=== PATIENT | female | born 1995 | race Caucasian/White ===

== ENCOUNTER → 2017-10-10 09:30 | Outpatient (CLI) | payer OTHER, SELFPAY ==
[2017-10-10 17:15] LABS: Chlamydia Trachomatis by PCR Negative (Negative); Neisserai gonorrhoeae by PCR Negative (Negative); Probe Check PASS; Sample Adequacy Control PASS; Specimen Processing Control PASS
[2017-10-14 13:44] LABS: HPV Reflexed? NOT INDICATED
== END ==
PROVIDERS: Visit Provider Obstetrics & Gynecology
DX: Z32.01 Encounter for pregnancy test, result positive (principal); Z12.4 Encounter for screening for malignant neoplasm of cervix; Z11.3 Encounter for screening for infections with a predominantly sexual mode of transmission
CPT/HCPCS: 87491; 87591; 88175; G0145

== ENCOUNTER → 2017-10-23 14:54 | Outpatient (CLI) | payer OTHER, SELFPAY ==
[2017-10-23 15:41] LABS: Absolute Lymphocyte Count 1.95 X10^3/ul (0.83-4.51); Absolute Neutrophil Count 6.2 X10^3/uL (2.0-7.7); Basophil# 0.02 X10^3/uL; Basophil% 0.2 % (0-1); Color, Urine Yellow (Yellow); Eosinophils% 1.1 % (0-5); Glucose, Dipstick Normal (Normal); Hemoglobin 13.3 g/dl (12.0-15.0); Ketone-Dipstick Negative (Negative); Leukocyte Esterase-Dipstick Negative /ul (Negative); Lymphocyte # 1.95 X10^3/ul (4.0); Lymphocyte % 22.4 % (19-41); Mean Corp Hgb Conc 33.3 g/gl (32-36); Mean Corpuscular Hgb 27.1 pg (27.0-32.0); Mean Corpuscular Volume 81.6 fL (81-99); Mean Platelet Vol. 9.4 fl (6.2-12.0); Monocyte# 0.45 X10^3/uL; Monocyte% 5.2 % (0-10); Neutrophil # 6.17 X10^3/uL (2.7-7.7); Neutrophil % 70.9 % (47-70); Nitrite-Dipstick Negative (Negative); Occult Blood-Urine Negative /ul (Negative); Platelet Count 243 K/mm3 (150-450); Protein-Dipstick Negative (Negative); RBC Distribution Width CV 13.8 % (11.6-14.6); RBC Distribution Width SD 40.8 fl (35.1-43.9); Specific Gravity, Urine 1.015 (1.002-1.030); Urine Bilirubin Dipstick Negative (Negative); Urine Clarity Clear (Clear); Urine Urobilinogen Normal (Normal); Urine pH 6.5 (5.0 - 8.0); White Blood Count 8.7 K/mm3 (4.4-11.0)
[2017-10-23 15:50] LABS: POSITIVE COUNT NO; POSITIVE DIFFERENTIAL NO; POSITIVE MORPHOLOGY NO
[2017-10-23 16:01] LABS: COTININE Drug Screen Negative (<200 ng/mL)
[2017-10-23 16:07] LABS: Amphetamine Urine VISTA NEGATIVE (<1000 ng/mL); Barbiturate Urine VISTA NEGATIVE (< 200 ng/mL); Benzodiazepine Urine VISTA NEGATIVE (< 200 ng/mL); Cocaine Urine VISTA NEGATIVE (< 300 ng/mL); Ecstacy Urine VISTA NEGATIVE (< 500 ng/mL); Methadone Urine VISTA NEGATIVE (< 300 ng/mL); PCP Urine VISTA NEGATIVE (< 25 ng/mL); THC Urine VISTA NEGATIVE (< 50 ng/mL); Vista UDS pH Range 5
[2017-10-23 16:39] LABS: Thyroid Stim Hormone (TSH) 1.37 uIU/mL (0.358-3.74)
[2017-10-23 16:54] LABS: HIV - WCH Non-Reactive (Nonreactive); Rubella IgG > 500.0 IU/mL
[2017-10-25 11:37] LABS: HEPATITIS B SURFACE AG Negative (Negative); Hep C Antibodies 0.1 s/co ratio (0.0-0.9)
[2017-10-27 01:01] LABS: Prenatal RPR NONREACTIVE (NONREACTIVE)
== END ==
PROVIDERS: Visit Provider Obstetrics & Gynecology
DX: Z34.81 Encounter for supervision of other normal pregnancy, first trimester (principal)
CPT/HCPCS: 36415; 80307; 81002; 84443; 85025; 86703; 86762; 86803; 87340

== ENCOUNTER → 2017-12-21 16:12 | Outpatient (CLI) | payer OTHER, SELFPAY ==
--- NOTE | 2017-12-21 | IMM_PTH ---
PATIENT: AMISH GILLESPIE LOC: [facility] U#:[id number] AGE/SX: 29/F ROOM: RE12/21/[address]: Dr. Thierry Rios MD : 1995 BED: DIS: SPEC #: [id number] RECD: 12/25/17 11:52 STATUS: TYSHAWN REQ #: [id number] BARBIE: 12/21/17 00:[address]: Thierry Rios DEPT: IMMUNOHISTOCHEMISTRY RECD BY: Malu Eaton Tissues: Uterine cervix, NOS Procedures: p16 (initial) KI-67 (add) Comments: @ Specimen number changed from [id number] to [id number] @ on 12/25/17 at 1159 by RGOOD. PHYSICIAN & INSTITUTION [place] [id number] SPECIMEN INFORMATION: Tissue Source: Cervix at 10 o'clock Clinical Info: JERMAINE Specimen Number: [id number] CPT code: 29125, 89578 METHODOLOGY: Deparaffinized sections of prefer/formalin-fixed tissue or PAP/DQ stained slides are incubated with monoclonal/polyclonal antibodies/oligonucleotide probes. Localization is made via biotin free immunoperoxidase method. Appropriate controls are performed and reacted as expected. Results on target cell population are indicated in the following table: RESULTS: ANTIBODY / CLONE RESULT P16 (E6H4) negative Ki-67 (30-9) negative These tests were developed and their performance characteristics determined by [facility]. They may not have been cleared or approved by the U.S. Food and Drug Administration. The FDA has determined that such clearance or approval is not necessary. INTERPRETATION: Cervix at 10 o'clock: Focal changes suspicious for HPV cytopathic effects. SJ:liz 12/26/17
--- NOTE | 2017-12-21 15:45 | CER_PTH ---
PATIENT: AMISH GILLESPIE LOC: [facility] U#:[id number] AGE/SX: 29/F ROOM: RE12/21/[address]: Dr. Thierry Rios MD : 1995 BED: DIS: SPEC #: [id number] RECD: 12/21/17 17:04 STATUS: TYSHAWN JAYE #: [id number] BARBIE: 12/21/17 15:[address]: Thierry Rios DEPT: SURGICAL PATHOLOGY RECD BY: Valdemar Epstein Tissues: Uterine cervix, NOS Procedures: Surgery Specimen Level IV HEADER OPERATION: Colposcopy PRE-OP DIAGNOSIS: LGSIL TISSUE SUBMITTED: 10 o'clock MICROSCOPIC DIAGNOSIS Cervix, 10 o'clock, biopsy: Focal changes suspicious for HPV cytopathic effects. Acute and chronic inflammation, squamous metaplasia and microglandular hyperplasia. See comment. GARTH:liz 12/25/17 COMMENT Results of Immunohistochemistry ([id number]) for surrogate HPV marker (p16) will be reported separately. MICROSCOPIC DESCRIPTION Slides are reviewed. GROSS DESCRIPTION Received in fixative is one container labeled with the patient's name and designated 10 o'clock. The specimen consists of one irregular fragment of light madera soft tissue that measures 0.4 x 0.4 x 0.1 cm. The specimen is totally submitted in one cassette. / SJ:liz 12/22/17 TC:5 CPT: 54297
== END ==
PROVIDERS: Visit Provider Obstetrics & Gynecology
DX: N87.9 Dysplasia of cervix uteri, unspecified (principal)
CPT/HCPCS: 88305; 88341; 88342

== ENCOUNTER 2018-01-05 02:04 | Emergency (ER) | payer OTHER, SELFPAY ==
[2018-01-05 02:05] VITALS: BP 127/77; PULSE 92; RESP 16; TEMP 36.7; O2SAT 97; BMI 28.1
--- NOTE | 2018-01-05 02:50 | ED.VIS.GEN ---
History of Present Illness Chief Complaint: Flank Pain Informant: Patient Onset: Yesterday, Days - 2 Context: Gradual Onset Timing: Continuous Quality: ache Location: left low back Current Severity: Moderate Maximum Severity: Moderate Worsened by: nothing Relieved by: nothing Associated Symptoms: nausea Narrative: Similar symptoms to prior kidney infections. She states when she gets those, she typically gets renal colic, which she is feeling now, but no urinary symptoms. She does not have any abnormal urinary symptoms now. She is 18 weeks, she is a . Her has been uneventful so far and she is feeling occasional flutters of the baby moving still. She had some cramping in her pelvis earlier this morning over 20 hours ago, but nothing since. No vaginal bleeding, gushes of water, or discharge otherwise. No diarrhea. No vomiting but she is nauseated. No known fevers although she had a subjective one 24 hours ago. She has not had pyelonephritis during this prior to now. - Past Medical History (1) Pyelonephritis Status: Resolved Past Medical History - Allergies and Home Meds Allergies/Adverse Reactions: Allergies No Known Allergies Allergy (Verified 01/05/18 02:08) Smoking Status: Never smoker Review of Systems General: Reports: Fever, Subjective. Denies: Chills, Sweats Eyes: Denies: Visual changes - bilaterally, Diplopia ENT: Denies: Rhinorrhea, Sore throat Cardiovascular: Denies: Chest pain, Palpitations Respiratory: Denies: Dyspnea, Cough, Dyspnea on exertion Gastrointestinal: Reports: Abdominal pain, Nausea. Denies: Vomiting, Diarrhea, Melena, Hematochezia Genitourinary: Denies: Dysuria, Hematuria, Frequency Musculoskeletal: Reports: Back pain, Extremity Pain Skin: Denies: Rash, Wounds Neurological: Denies: Headache, Weakness, Numbness Physical Exam Vital Signs/Narrative: Vital Signs Temp Pulse Resp BP Pulse Ox 01/05/18 02:05 98.1 F 92 16 127/77 H 97 Inital Vital Signs reviewed: Yes General: Well nourished, Well developed, - - nad Head: Normocephalic, Atraumatic Eyes: Perrl, EOMI ENT: Moist mucous membranes, No rhinorrhea Neck: Supple, Nontender Cardiovascular: Regular rate, Regular rhythm, No murmurs Respiratory: No distress, CTA bilaterally, Chest nontender Abdomen: Soft, Nontender, Nondistended, Normal bowel sounds Back: Normal Inspection, CVA tenderness - left only. otherwise, NT. no rashes. Extremities: Nontender, No edema Skin: Normal color, No rash Neurological: Alert, Oriented x3, Cranial nerves II-XII grossly intact, Normal Strength, Normal Sensation Psychological: Normal affect Diagnostic/Tx/Re-eval - Medical Decision Making Urinalysis is normal, showing no signs of infection. Ultrasound is not available at this time, I discussed with the patient that an alternative diagnosis certainly could be a kidney stone, versus muscular discomfort in her back. heart tones are good at 158, labs are otherwise unremarkable showing a nonspecific leukocytosis that is mild and, in second trimester . She was given Tylenol, IV fluids and Zofran, she does feel better and she is comfortable going home and following up with her patient support specialist. We will also give her some urine strainers to strain urine for the next 48 hours in case she does have a small stone that hopefully she would pass. ED Disposition - Plan for ED Patient: Disposition: Home or Assisted Living Chief Complaint: Flank Pain Diagnosis: Left flank pain, Second trimester Instructions: ED Flank Pain Uncertain Cause Prescriptions: Ondansetron [Zofran Odt] 8 mg PO Q8H PRN PRN #12 tab PRN Reason: Nausea Referrals: Care Physician,No Primary [Primary Care Provider] - Thierry Rios MD [STAFF PHYSICIAN] - 3-5 Days if not improving
[2018-01-05 02:57] LABS: Mucous, Urine 0 SEEN /hpf (<or=2+); Red Blood Cells-Urine 0 SEEN /hpf (0-5); White Blood Cells 0 SEEN /hpf (0-5)
[2018-01-05] MEDS: Ondansetron 4 MG/2 ML Vial IV (02:58)
[2018-01-05 02:59] LABS: Color, Urine Yellow (Yellow); Glucose, Dipstick Normal (Normal); Ketone-Dipstick Negative (Negative); Leukocyte Esterase-Dipstick Negative /ul (Negative); Nitrite-Dipstick Negative (Negative); Occult Blood-Urine Negative /ul (Negative); Protein-Dipstick Negative (Negative); Specific Gravity, Urine 1.015 (1.002-1.030); Urine Bilirubin Dipstick Negative (Negative); Urine Clarity Clear (Clear); Urine Urobilinogen Normal (Normal)
[2018-01-05] MEDS: Acetaminophen 500 MG Tablet 1000 MG PO (02:59)
[2018-01-05 03:01] LABS: Absolute Lymphocyte Count 1.94 X10^3/ul (0.83-4.51); Absolute Neutrophil Count 8.9 X10^3/uL (2.0-7.7); Basophil# 0.03 X10^3/uL; Basophil% 0.3 % (0-1); Eosinophil# 0.14 X10^3/uL; Eosinophils% 1.2 % (0-5); Hematocrit 34.8 % (37-47); Hemoglobin 12.2 g/dl (12.0-15.0); Lymphocyte # 1.94 X10^3/ul (4.0); Lymphocyte % 16.6 % (19-41); Mean Corp Hgb Conc 35.1 g/gl (32-36); Mean Corpuscular Hgb 29.6 pg (27.0-32.0); Mean Corpuscular Volume 84.5 fL (81-99); Mean Platelet Vol. 9.9 fl (6.2-12.0); Monocyte# 0.67 X10^3/uL; Monocyte% 5.7 % (0-10); Neutrophil # 8.85 X10^3/uL (2.7-7.7); Neutrophil % 75.8 % (47-70); Platelet Count 219 K/mm3 (150-450); RBC Distribution Width CV 13.3 % (11.6-14.6); RBC Distribution Width SD 40.9 fl (35.1-43.9); Red Blood Count 4.12 M/mm3 (4.2-5.4); White Blood Count 11.7 K/mm3 (4.4-11.0)
[2018-01-05 03:05] LABS: POSITIVE COUNT NO; POSITIVE DIFFERENTIAL NO; POSITIVE MORPHOLOGY NO
[2018-01-05 03:08] LABS: Bacteria RARE /hpf (None Seen); Squamous Epithelial Cells - UA 0-5 SEEN /hpf (5-10)
[2018-01-05 03:15] LABS: Anion Gap 10 (5-15); BUN 9 mg/dL (7-18); BUN/Creat Ratio 15.1 RATIO (10-20); Calcium,Total 8.7 mg/dL (8.5-10.1); Chloride 109 mmol/L (98-107); EST Glomerular Filtration Rate 133 mL/min (>60); Est Glom Filt Rate - Afr Amer 161 mL/min (>60); Estimated Creatinine Clearance 143.02 ml/min; Glucose 94 mg/dL (74-106); Potassium 3.6 mmol/L (3.5-5.1); Sodium Level 143 mmol/L (136-145)
[2018-01-05 04:20] VITALS: BP 105/71; PULSE 71; RESP 18; O2SAT 99
== END 2018-01-05 04:20 | disposition home or self-care (01) ==
PROVIDERS: Emergency Provider Emergency Medicine
DX: O26.892 Other specified pregnancy related conditions, second trimester (principal); R11.0 Nausea; R10.9 Unspecified abdominal pain; Z3A.18 18 weeks gestation of pregnancy; Z87.448 Personal history of other diseases of urinary system
CPT/HCPCS: 80048; 81001; 85025; 96361; 96374; 99283; J7030; J7040; A4216; J2405

== ENCOUNTER 2018-01-28 08:13 | Emergency (ER) | payer OTHER, SELFPAY ==
[2018-01-28 08:14] VITALS: BP 121/63; PULSE 80; RESP 17; TEMP 36.8; O2SAT 97; BMI 27.8
--- NOTE | 2018-01-28 08:27 | ED.VISSUMM ---
- ER Visit Summary Date of Service: 01/28/18 Chief Complaint: Right flank pain History of Present Illness: The patient is a 22 F no significant past medical history. She is currently almost 22 weeks . Ab0. Patient states suddenly on Monday she had right flank pain. She denies any dysuria or hematuria. She denies any fever. She has had nausea limited to no vomiting. No diarrhea. She denies any abdominal pain. No vaginal bleeding. She has no history of kidney stones. Denies any trauma. Physical Examination: Young female no acute distress. Vital signs are stable and afebrile. Blood pressure 121/63. H EENT exam unremarkable. Neck nontender. Lungs clear to auscultation bilaterally. Heart regular rhythm no murmur. Abdomen soft. Gravid uterus. Nontender. Both the right upper and right lower quadrants are unremarkable. She is moving all 4 extremities. They are neurovascularly intact. Normal range of motion. Normal motor strength. No edema. Back she has reproducible paraspinal tenderness on the right flank. There is no ecchymosis or bruising. No redness or warmth. Neurologically she is awake and alert without focal motor deficits. Test Results: Urinalysis shows greater than 100 white blood cells 3+ bacteria and blood consistent with UTI or pyelonephritis. Negative nitrates. BMP normal. Normal renal function. heart tones 152. A urine culture was ordered. Emergency Department Course and Treatment: Patient with right flank pain without history of kidney stones. She was recently evaluated normal chemistry panel and urinalysis. On repeat exam patient is doing well at 09 25. I discussed all test results with her and her mother. She will be started on Keflex 500 4 times daily for 10 days. Follow-up with her ENROBING MACHINE CORDER. Get the urine culture results. Return if feeling worse. Tylenol for pain. Treatment Plan: Keflex 500 4 times daily for 10 days. Disposition: Discharge Impression: Acute right flank pain secondary to pyelonephritis Currently 21 weeks and 5 days This note was generated with Voltation software. It may contain incorrect words, spelling, and punctuation that were not noted in review of the chart prior to signing ED Disposition - Plan for ED Patient: Chief Complaint: Flank Pain Referrals: Care Physician,No Primary [Primary Care Provider] -
--- NOTE | 2018-01-28 08:31 | ED.DCSUM_ITS ---
- ER Visit Summary Date of Service: 01/28/18 Chief Complaint: Right flank pain History of Present Illness: The patient is a 22 F no significant past medical history. She is currently almost 22 weeks . Ab0. Patient states suddenly on Monday she had right flank pain. She denies any dysuria or hematuria. She denies any fever. She has had nausea limited to no vomiting. No diarrhea. She denies any abdominal pain. No vaginal bleeding. She has no history of kidney stones. Denies any trauma. Physical Examination: Young female no acute distress. Vital signs are stable and afebrile. Blood pressure 121/63. H EENT exam unremarkable. Neck nontender. Lungs clear to auscultation bilaterally. Heart regular rhythm no murmur. Abdomen soft. Gravid uterus. Nontender. Both the right upper and right lower quadrants are unremarkable. She is moving all 4 extremities. They are neurovascularly intact. Normal range of motion. Normal motor strength. No edema. Back she has reproducible paraspinal tenderness on the right flank. There is no ecchymosis or bruising. No redness or warmth. Neurologically she is awake and alert without focal motor deficits. Test Results: Urinalysis shows greater than 100 white blood cells 3+ bacteria an d blood consistent with UTI or pyelonephritis. Negative nitrates. BMP normal. Normal renal function. heart tones 152. A urine culture was ordered. Emergency Department Course and Treatment: Patient with right flank pain without history of kidney stones. She was recently evaluated normal chemistry panel and urinalysis. On repeat exam patient is doing well at 09 25. I discussed all test results with her and her mother. She will be started on Keflex 500 4 times daily for 10 days. Follow-up with her CORE DRILLER HELPER. Get the urine culture results. Return if feeling worse. Tylenol for pain. Treatment Plan: Keflex 500 4 times daily for 10 days. Disposition: Discharge Impression: Acute right flank pain secondary to pyelonephritis Currently 21 weeks and 5 days This note was generated with Noovoation software. It may contain incorrect words, spelling, and punctuation that were not noted in review of the chart prior to signing ED Disposition - Plan for ED Patient: Chief Complaint: Flank Pain Referrals: Care Physician,No Primary [Primary Care Provider] -
[2018-01-28] MEDS: 0.9% Normal Saline 1,000 ML 1000 ML IV (08:39)
[2018-01-28] MEDS: Morphine 4 MG/ML Syringe 6 MG IV (08:39)
[2018-01-28] MEDS: Ondansetron 4 MG/2 ML Vial IV (08:40)
[2018-01-28 08:52] VITALS: BP 115/72; PULSE 88; RESP 16; O2SAT 98
[2018-01-28 08:52] LABS: Mucous, Urine 0 SEEN /hpf (<or=2+); Red Blood Cells-Urine 0 SEEN /hpf (0-5)
[2018-01-28 08:54] LABS: Color, Urine Yellow (Yellow); Glucose, Dipstick Normal (Normal); Ketone-Dipstick 5 mg/dl (Negative); Leukocyte Esterase-Dipstick 500 /ul (Negative); Nitrite-Dipstick Negative (Negative); Occult Blood-Urine 250 /ul (Negative); Protein-Dipstick 100 mg/dl (Negative); Specific Gravity, Urine 1.005 (1.002-1.030); Urine Bilirubin Dipstick Negative (Negative); Urine Clarity Cloudy (Clear); Urine Urobilinogen Normal (Normal)
[2018-01-28 08:59] LABS: Bacteria 3+ /hpf (None Seen); Squamous Epithelial Cells - UA 0-5 SEEN /hpf (5-10); White Blood Cells >100 SEEN /hpf (0-5)
[2018-01-28 09:07] LABS: Anion Gap 9 (5-15); BUN 7 mg/dL (7-18); BUN/Creat Ratio 12.5 RATIO (10-20); Calcium,Total 8.4 mg/dL (8.5-10.1); Chloride 106 mmol/L (98-107); Creatinine, Serum 0.56 mg/dL (0.55-1.02); EST Glomerular Filtration Rate 143 mL/min (>60); Est Glom Filt Rate - Afr Amer 172 mL/min (>60); Estimated Creatinine Clearance 153.24 ml/min; Glucose 92 mg/dL (74-106); Potassium 3.6 mmol/L (3.5-5.1); Sodium Level 138 mmol/L (136-145)
--- NOTE | 2018-01-28 09:28 | ED.DEP ---
ED Disposition - Plan for ED Patient: Disposition: Home or Assisted Living Chief Complaint: Flank Pain Instructions: ED Kidney Infec Female Prescriptions: Ondansetron [Zofran Odt] 4 mg PO Q6H PRN PRN #14 tab.rapdis PRN Reason: Nausea Cephalexin [Keflex] 500 mg PO Q6 #40 cap Referrals: Thierry Rios MD [STAFF PHYSICIAN] - As soon as possible Additional Instructions: Plenty of fluids and rest. Tylenol for pain. Keflex 1 pill 4 times a day till gone. Call and follow-up with Dr. Rios. A urine culture was sent.
[2018-01-28] MEDS: Cephalexin 250 MG Capsule 500 MG PO (09:48)
== END 2018-01-28 09:52 | disposition home or self-care (01) ==
PROVIDERS: Emergency Provider Emergency Medicine
DX: O23.02 Infections of kidney in pregnancy, second trimester (principal); Z3A.21 21 weeks gestation of pregnancy
CPT/HCPCS: 80048; 81001; 87086; 87088; 87186; 96361; 96374; 96375; 99284; J7030; J2405

== ENCOUNTER → 2018-03-14 08:36 | Outpatient (CLI) | payer BC, SELFPAY ==
[2018-03-14 10:56] LABS: Hematocrit 32.2 % (37-47); Hemoglobin 10.6 g/dl (12.0-15.0); Mean Corp Hgb Conc 32.9 g/gl (32-36); Mean Corpuscular Volume 85.2 fL (81-99); Mean Platelet Vol. 9.6 fl (6.2-12.0); Platelet Count 242 K/mm3 (150-450); RBC Distribution Width CV 12.8 % (11.6-14.6); RBC Distribution Width SD 38.7 fl (35.1-43.9); Red Blood Count 3.78 M/mm3 (4.2-5.4); White Blood Count 8.4 K/mm3 (4.4-11.0)
[2018-03-14 10:57] LABS: Scan Indicated on CBC? Y/N NO
[2018-03-14 11:07] LABS: Glucose Challenge Gest 1H 50g 131 mg/dL (70-140)
== END ==
PROVIDERS: Visit Provider Obstetrics & Gynecology
DX: Z34.83 Encounter for supervision of other normal pregnancy, third trimester (principal)
CPT/HCPCS: 36415; 82950; 85027; 86850

== ENCOUNTER → 2018-05-11 11:04 | Outpatient (CLI) | payer BC, SELFPAY | PROVIDERS: Visit Provider Obstetrics & Gynecology | DX: Z36.85 Encounter for antenatal screening for Streptococcus B (principal) | CPT/HCPCS: 87081 ==

== ENCOUNTER → 2018-05-18 10:06 | Outpatient (CLI) | payer BC, SELFPAY ==
[2018-05-18 10:32] LABS: ROM Internal Control Test YES-OK TO RESULT pt. (Internal QC); ROM Patient Test Negative (Negative)
[2018-05-18 10:33] LABS: Record Kit Lot#, ROM+ J7836
== END ==
PROVIDERS: Visit Provider Obstetrics & Gynecology
DX: Z34.83 Encounter for supervision of other normal pregnancy, third trimester (principal)
CPT/HCPCS: 84112

== ENCOUNTER 2018-06-08 00:45 | Outpatient (CLI) | payer BC, SELFPAY ==
[2018-06-08 01:31] VITALS: BMI 32.9
[2018-06-08 01:49] LABS: ROM Internal Control Test YES-OK TO RESULT pt. (Internal QC); ROM Patient Test Negative (Negative); Record Kit Lot#, ROM+ J7836
[2018-06-08] MEDS: Acetaminophen 500 MG Tablet PO (04:22)
--- NOTE | 2018-06-11 13:01 | OB.TRI.NOTE ---
History of Present Illness Date of Service: 06/08/18 Was patient seen by the physician?: No Reason For Visit: R/O LABOR Date of Service: 06/08/18 Final ALIZA: 06/05/18 Gestational age: 40 Weeks and 3 Days History of Present Illness: 22 yo female at 40 3/7 wk with UCs for labor check. Monitored for more than 4 hrs without additional cervical change Allergies No Known Allergies Allergy (Verified 06/08/18 01:31) Laboratory Studies: Laboratory Tests 06/08/18 Range/Units 01:00 Vag Amniotic Fld Detect Negative (Negative) NST - FHR Rate Baby A Baseline: 130-140s avf variability. accels t o 160s. no decels Variability:: Moderate Accelerations:: 15 x 15 Decelerations:: None NST Reactive:: Yes, Appropriate for gestational age FHR Category:: Category I Uterine Activity:: UCs 1 1 1/2 - 3 1/2 mins. Impression/Plan 40 3/7 wk False labor NST reactive UCs noted, but no further cervix change Keep next ofc appt. Return to hospital if inc s/sx of labor.
== END 2018-06-08 05:40 | disposition home or self-care (01) ==
LOC: WPOUT 01:17 → WP 01:17
PROVIDERS: Referring Provider Obstetrics & Gynecology; Visit Provider Obstetrics & Gynecology
DX: O47.1 False labor at or after 37 completed weeks of gestation (principal); Z3A.40 40 weeks gestation of pregnancy
CPT/HCPCS: 59050; 84112; 99218; G0378

== ENCOUNTER 2018-06-14 01:05 | Inpatient (IN) | payer BC, SELFPAY ==
[2018-06-14] MEDS: Lactated Ringers 1,000 ML 50 ML IV ×3 (01:45→07:32)
[2018-06-14 02:16] VITALS: BMI 33.3
[2018-06-14 02:17] LABS: Absolute Lymphocyte Count 2.98 X10^3/ul (0.83-4.51); Absolute Neutrophil Count 9.8 X10^3/uL (2.0-7.7); Basophil# 0.02 X10^3/uL; Basophil% 0.1 % (0-1); Eosinophil# 0.11 X10^3/uL; Eosinophils% 0.8 % (0-5); Hematocrit 36.5 % (37-47); Hemoglobin 12.6 g/dl (12.0-15.0); Lymphocyte # 2.98 X10^3/ul (4.0); Lymphocyte % 21.5 % (19-41); Mean Corp Hgb Conc 34.5 g/gl (32-36); Mean Corpuscular Hgb 28.5 pg (27.0-32.0); Mean Corpuscular Volume 82.6 fL (81-99); Mean Platelet Vol. 11.3 fl (6.2-12.0); Monocyte% 6.5 % (0-10); Neutrophil # 9.78 X10^3/uL (2.7-7.7); Neutrophil % 70.7 % (47-70); Platelet Count 208 K/mm3 (150-450); RBC Distribution Width CV 14.3 % (11.6-14.6); RBC Distribution Width SD 41.4 fl (35.1-43.9); Red Blood Count 4.42 M/mm3 (4.2-5.4); White Blood Count 13.8 K/mm3 (4.4-11.0)
[2018-06-14] MEDS: Ondansetron 4 MG/2 ML Vial IV (02:36)
[2018-06-14 02:42] LABS: POSITIVE COUNT NO; POSITIVE DIFFERENTIAL NO; POSITIVE MORPHOLOGY NO
[2018-06-14] MEDS: fentaNYL-bupivacaine (epidural) 100 ML BAG EPIDURAL ×2 (03:25→07:33)
[2018-06-14] MEDS: Acetaminophen 325 MG Tablet PO (08:35)
--- NOTE | 2018-06-14 11:45 | PLAC_PTH ---
PATIENT: AMISH GILLESPIE LOC: [facility] U#:[id number] AGE/SX: 23/ ROOM: WP003 RE06/14/[address]: Dr. Thierry Rios MD : 1995 BED: 1 DIS: 06/16/2018 SPEC #: [id number] RECD: 06/14/18 12:51 STATUS: TYSHAWN REQ #: [id number] BARBIE: 06/14/18 11:[address]: Thierry Rios DEPT: SURGICAL PATHOLOGY RECD BY: Faisal Forrester ENTERED: 06/14/18 13:20 SP TYPE: PLACENTA OTHR DR: Dr. Janis Fernandez MD No Primary Care Phys Tissues: Placenta, NOS Procedures: Surgery Specimen Level V HEADER OPERATION: Vaginal delivery PRE-OP DIAGNOSIS: Rupture of membranes, meconium stained placenta TISSUE SUBMITTED: Placenta MICROSCOPIC DIAGNOSIS Placenta: Placental disc - third trimester placenta (454 gm). Membranes - acute chorioamnionitis. - Pigment-laden macrophages consistent with meconium staining. Umbilical cord - three blood vessels and acute funisitis. SJ:liz 06/18/18 MICROSCOPIC DESCRIPTION Slides are reviewed. GROSS DESCRIPTION SPECIMEN: PLACENTA / CLINICAL INFORMATION: A. Weight: 3.22 kg B. Gestational Age: 41 weeks C. Sex: Male PLACENTAL WEIGHT (POST FIXATION): 454 gm PLACENTAL DIMENSIONS: 14.5 x 13.5 x 2.5 cm PLACENTAL SHAPE: Usual ovoid PLACENTAL WEIGHT FOR GESTATIONAL AGE: Within 10-99th percentile MEMBRANES - Present A. Insertion: Marginal B. Site of rupture from edge: 6 cm from edge of placental disc C. Color of membrane: [place]cantara-green D. Abnormalities: None UMBILICAL CORD - Present A. Color: [place]cantara-gracia B. Insertion: Paracentral C. Length: 34.5 cm D. Diameter: 1.2 cm E. Number of vessels: Three F. Abnormalities: None PLACENTAL DISC - Present A. Color of surface: Bluish-gracia B. surface abnormalities: None C. Maternal cotyledons: Intact with minimal tears D. Attached retro placental clot: No clot E. Cut surface: Dark red and spongy F. Lesions: None G. Separate clot: Absent SECTIONS SUBMITTED: 1. Umbilical cord, end and membranes 2. Cord, maternal end and membranes 3. Central placenta, surface 4. Peripheral placenta 5. Central placenta, maternal surfaces CE:liz 06/15/18 TC:2 CPT: 13969
[2018-06-14] MEDS: Oxytocin 30 units/NS 500 ml 30 UNITS/500 ML IV.SOLN 334 UNITS IV (11:46)
--- NOTE | 2018-06-14 12:09 | DCINST_ITS ---
Discharge Diet: No Restrictions Discharge Activity: Return to Normal Activity, May Drive, May Shower Return to work on:: 08/14/18 May shower in (days): 0 May resume sexual activity in: 4-6 weeks Call your doctor if your incision/area has: Sudden Increased Bleeding, Increased Pain/ Swelling, Foul Smelling Discharge Call your doctor if you observe: Fever of 101 or Higher, Inability to urinate, Inability to have a bowel movement, Using more than one pad per hour, Shortness of breath, Chest pain, Calf discomfort, Uncontrolled pain Cleanse incision/area with: Soap & Water Additional Instructions: If you experience any of the following, contact your healthcare provider. * Bleeding that soaks a pad every hour for 2 hours * Fever 100.4 or higher * Unrelieved incision or abdominal pain * Swelling, redness, discharge or bleeding from your incision or episiotomy site * Your incision begins to separate * Problems urinating (including inability to urinate or burning while urinating). * Visual changes * Severe headache * Flu-like symptoms * Pain or redness in one of both of your breasts * Pain, warmth, tenderness or swelling in your legs, especially the calf area * Frequent nausea and vomiting * Symptoms of depression or anxiety If you experience any of the following, call 911 or go to the nearest Emergency Room. * Chest pain * Problems breathing * Seizure activity * Partial or complete paralysis of a body part, slurred speech, weakness or drooping of the face, or a sudden inability to walk or hold your balance Allergies/Adverse Reactions: Allergies No Known Allergies Allergy (Verified 06/14/18 02:15) Medications to take at Discharge Vits96/Iron Fum/Folic [ Tablet] 1 tab PO DAILY 01/05/18 Ferrous Gluconate 324 mg PO BID 06/08/18 Ibuprofen [Motrin] 600 mg PO Q6H PRN PRN #30 tab 06/14/18 The following prescriptions were given: Ibuprofen [Motrin] 600 mg PO Q6H PRN PRN #30 tab PRN Reason: pain or cramping Please Follow Up With: Thierry Rios MD When: 6 weeks Primary Care Physician: Care Physician,No Primary [Primary Care Provider] - Test Results: Test results from this visit will be discussed in further detail at your follow- up appointment, if applicable. Proposed Discharge Date: 06/16/18
[2018-06-14] MEDS: Oxytocin 30 units/NS 500 ml 30 UNITS/500 ML IV.SOLN 167 UNITS IV (12:17)
--- NOTE | 2018-06-14 12:51 | PCM.OB.VAG ---
Vaginal Delivery Maternal Presentation: Active Labor, Spontaneous Rupture of Membranes Presented at 41 weeks 2 days EGA with spontaneous rupture of membranes at home. Amniotic Membrane Rupture Type: Spontaneous at home Rupture of Membrane time: 0015 Amniotic Fluid Description: Clear Final ALIZA: 06/05/18 Final ALIZA Source: US <20 weeks Gestational age: 41 Weeks and 2 Days Date of Procedure: 06/14/18 Pre-Operative Diagnosis: Labor Post-Operative Diagnosis: same Surgery/ Procedure Performed: Spontaneous Vaginal Delivery Anesthesiologist: Bam Elmore Type of Anesthesia: Epidural Description of Procedure: Ana was admitted with membranes grossly ruptured. The fluid was noted to be meconium stained. She progressed over 6 hours to fully dilated. She then pushed for about 3 hours to deliver a live male without complication. There was noted to be a loose umbilical around the neck x 1 easily reduced at delivery. The mouth was suctioned with a bulb suction at delivery. The cord was clamped and cut. The baby was then handed to the waiting nurse for evaluation by Dr. Cameron. There was an active cry shortly thereafter. The placenta was delivered spontaneously intact with a centrally located 3VC. The membranes were meconium stained. The uterus contracted well. Inspection revealed an intact cervix and upper vagina. A small posterior vaginal first degree tear was repaired with 2-0 Vicryl. Small bilateral periurethral tears were repaired with 3-0 Rapide suture. Presentation: ROP Placental Delivery Description: Spontaneous Placenta Disposition: [facility] Percentage of Placenta Abruption: 0 Cord Vessel Description: 3 Vessels Nuchal Cord Compression: Without compression Cord Entanglement: Around neck x 1, loose Drain: Thomas to straight drain Estimated Blood Loss: 200cc A gender: Male (1 minute): 7 (5 minute): 9 Episiotomy Description: None Laceration: Midline, Vaginal Extension/lac, 1st degree Medications given after delivery: IV Pitocin Complications: None
[2018-06-14] MEDS: Ibuprofen 600 MG Tablet PO (16:05)
[2018-06-14 18:00] VITALS: BP 124/77; PULSE 83; RESP 16; TEMP 36.9; O2SAT 96
[2018-06-14 19:30] VITALS: BP 129/78; PULSE 86; RESP 18; TEMP 37; O2SAT 93
[2018-06-14] MEDS: Acetaminophen 500 MG Tablet 1000 MG PO (20:55)
[2018-06-15 00:13] VITALS: BP 129/85; PULSE 79; RESP 18; TEMP 36.6
[2018-06-15] MEDS: Ferrous Gluconate 324 MG Tablet PO ×3 (00:15→22:14)
[2018-06-15 04:45] VITALS: BP 131/68; PULSE 83; RESP 18; TEMP 36.8
[2018-06-15] MEDS: Ibuprofen 600 MG Tablet PO ×3 (05:00→17:57)
[2018-06-15 05:24] LABS: Hematocrit 33.5 % (37-47); Hemoglobin 11.1 g/dl (12.0-15.0); Mean Corp Hgb Conc 33.1 g/gl (32-36); Mean Corpuscular Hgb 28.4 pg (27.0-32.0); Mean Corpuscular Volume 85.7 fL (81-99); Mean Platelet Vol. 10.8 fl (6.2-12.0); Platelet Count 156 K/mm3 (150-450); RBC Distribution Width CV 14.6 % (11.6-14.6); RBC Distribution Width SD 44.4 fl (35.1-43.9); Red Blood Count 3.91 M/mm3 (4.2-5.4); White Blood Count 12.9 K/mm3 (4.4-11.0)
[2018-06-15 05:37] LABS: Scan Indicated on CBC? Y/N NO
--- NOTE | 2018-06-15 07:44 | PCM.PN.OB ---
Subjective: No specific complaints. . Bleeding light. Objective: Afeb VSS Hgb stable - Physical Exam General: Alert, Oriented x3, Cooperative, No apparent distress Lungs: Clear to auscultation, Normal air movement Cardiovascular: Regular rate, Regular Rhythm Abdomen: Soft, Non Tender, Non-Distended Extremities: No edema Skin: No rashes Neurological: Neuro grossly intact Psych/Mental Status: Normal Affect Comment: Lochia light Vital Signs Temp Pulse Resp BP Pulse Ox 98.3 F 83 18 131/68 H 93 06/15/18 04:45 06/15/18 04:45 06/15/18 04:45 06/15/18 04:45 06/14/18 19:30 Oxygen Delivery Method Room Air Weight: 212 lb 15.465 oz Body Mass Index (BMI) 33.3 Intake and Output for Last 24 Hours 06/13/18 06/14/18 06/15/18 23:59 23:59 23:59 Intake Total 1721 / 1721 Output Total 850 / 850 Balance 871 / 871 Laboratory Tests Past 24 Hrs 06/14/18 06/15/18 14:05 05:00 WBC 12.9 H RBC 3.91 L Hgb 11.1 L Hct 33.5 L MCV 85.7 MCH 28.4 MCHC 33.1 RDW 14.6 RDW Differential 44.4 H Plt Count 156 MPV 10.8 Screen NEGATIVE Baby's Blood Type A POSITIVE Baby's ALIYA NEGATIVE Medical Necessity - Tobacco Use Smoking Status: Never smoker Assessment/Plan All Active Problems Pyelonephritis (Resolved) Doing well on PP day#1. Continue routine PP care.
[2018-06-15 08:00] VITALS: BP 115/75; PULSE 77; RESP 16; TEMP 36.6
[2018-06-15] MEDS: Senna/Docusate Sodium 1 Tablet PO (10:00)
[2018-06-15] MEDS: Prenatal Vits Tablet 1 TABLET PO (10:00)
[2018-06-15 14:00] VITALS: BP 114/67; PULSE 71; RESP 16; TEMP 36.4
[2018-06-15 21:17] VITALS: BP 119/77; PULSE 75; RESP 18; TEMP 36.9; O2SAT 95
[2018-06-15] MEDS: Acetaminophen 500 MG Tablet 1000 MG PO (22:13)
[2018-06-16] MEDS: Dibucaine 30 GM Tube 1 APPLIC TOPICAL (00:45)
[2018-06-16] MEDS: Ibuprofen 600 MG Tablet PO (00:45)
[2018-06-16 02:52] VITALS: BP 129/80; PULSE 69; RESP 18; TEMP 36.8; O2SAT 96
[2018-06-16] MEDS: Acetaminophen 500 MG Tablet 1000 MG PO (06:18)
[2018-06-16] MEDS: Senna/Docusate Sodium 1 Tablet PO (06:18)
[2018-06-16 08:05] VITALS: BP 123/79; PULSE 85; RESP 16; TEMP 37.2; O2SAT 96
--- NOTE | 2018-06-16 10:48 | PCM.PN.OB ---
Subjective: Patient without complaints. Minimal vaginal bleeding. Breast-feeding going well. Ready to go home today. - Physical Exam Vital Signs Temp Pulse Resp BP Pulse Ox 98.9 F 85 16 123/79 H 96 06/16/18 08:05 06/16/18 08:05 06/16/18 08:05 06/16/18 08:05 06/16/18 08:05 Oxygen Delivery Method Room Air Weight: 212 lb 15.465 oz Body Mass Index (BMI) 33.3 Intake and Output for Last 24 Hours 06/14/18 06/15/18 06/16/18 23:59 23:59 23:59 Intake Total 1721 / 1721 Output Total 850 / 850 Balance 871 / 871 Medical Necessity - Tobacco Use Smoking Status: Never smoker Assessment/Plan All Active Problems Pyelonephritis (Resolved) Doing well day #1 status post routine spontaneous vaginal delivery. Will release to home with routine instructions. We will give prescription for Dermoplast per patient request.
[2018-06-16] MEDS: Ferrous Gluconate 324 MG Tablet PO (10:56)
[2018-06-16] MEDS: Prenatal Vits Tablet 1 TABLET PO (10:56)
[2018-06-18 12:44] LABS: Pathology Specimen OB SEE PATHOLOGY REPORT
--- NOTE | 2018-06-20 16:05 | NURSING ---
Follow up phone call no answer, left voicemail
== END 2018-06-16 11:30 | disposition home or self-care (01) | DRG 807 ==
PROVIDERS: Admitting Provider Obstetrics & Gynecology; Referring Provider Obstetrics & Gynecology; Visit Provider Obstetrics & Gynecology
DX: O69.81X0 Labor and delivery complicated by cord around neck, without compression, not applicable or unspecified (principal); O77.0 Labor and delivery complicated by meconium in amniotic fluid; O71.82 Other specified trauma to perineum and vulva; O70.0 First degree perineal laceration during delivery; Z37.0 Single live birth; Z3A.41 41 weeks gestation of pregnancy
CPT/HCPCS: 59025; 59050; 85025; 85027; 85461; 86850; 86900; 88307; 90384; 99218; J7120; G0378; J2405; J2790

== ENCOUNTER → 2018-09-14 | Outpatient (CLI) | payer BC, SELFPAY ==
[2018-09-19 16:59] LABS: HPV APTIMA, High Risk Negative (Negative)
[2018-09-19 17:00] LABS: HPV Reflexed? YES, CHARGE PATIENT
== END | disposition home or self-care (01) ==
LOC: LABSPEC 10:24
PROVIDERS: Visit Provider Obstetrics & Gynecology
DX: Z12.4 Encounter for screening for malignant neoplasm of cervix (principal)
CPT/HCPCS: 87624; 88175; G0145

== ENCOUNTER → 2019-10-10 | Outpatient (CLI) | payer BC, SELFPAY ==
[2019-10-16 08:48] LABS: HPV APTIMA, High Risk Negative (Negative)
[2019-10-16 08:49] LABS: HPV Reflexed? YES, CHARGE PATIENT
== END | disposition home or self-care (01) ==
LOC: LABSPEC 16:31
PROVIDERS: Visit Provider Obstetrics & Gynecology
DX: Z12.4 Encounter for screening for malignant neoplasm of cervix (principal)
CPT/HCPCS: 87624; 88175; G0145

== ENCOUNTER 2019-11-08 17:35 | Emergency (ER) | payer BC, SELFPAY ==
[2019-11-08 17:36] VITALS: BP 136/88; PULSE 111; RESP 22; TEMP 36.5; O2SAT 100; BMI 26.4
[2019-11-08 18:07] LABS: Mucous, Urine 0 SEEN /hpf (<or=2+)
--- NOTE | 2019-11-08 18:10 | US_ITS ---
STUDY: ULTRASOUND OF THE FEMALE PELVIS - COMPLETE REASON FOR EXAM: Female, 24 years old. SHARP LLQ PAIN LMP: 10/10/2019 TECHNIQUE: Transabdominal and Transvaginal TECHNICAL QUALITY: Adequate. COMPARISON: None. FINDINGS: The uterus is retroverted and is in a midline position. The uterus measures 7.8 x 6.6 x 5.0 cm. Normal uterine cervix. The endometrium measures 12 mm in thickness, and is hyperechoic. There is no demonstrated endometrial mass. There is no demonstrated myometrial mass. I.U.D. - The patient does not have an I.U.D. The right ovary is visualized. The right ovary measures 2.5 x 2.1 x 2.1 cm. There is no right ovarian cyst or ovarian mass. There is no visualized right adnexal mass or complex lesion. There is normal arterial and normal venous vascularity. The left ovary is visualized. The left ovary measures 4.8 x 2.3 x 1.7 cm. There is no left ovarian cyst or ovarian mass. There is no visualized left adnexal mass or complex lesion. There is normal arterial and normal venous vascularity. There is no fluid in the cul-de-sac. US/Transvaginal Non- IMPRESSION: Normal female pelvis. Electronically Signed: Kaiser Smith MD at 18:58 EDT , Service support ,
[2019-11-08] MEDS: Ondansetron 4 MG/2 ML Vial IV (18:11)
[2019-11-08] MEDS: Morphine 4 MG/ML Syringe IV ×2 (18:11→20:31)
[2019-11-08 18:12] LABS: Color, Urine Straw (Yellow); Glucose, Dipstick Normal (Normal); Ketone-Dipstick Negative (Negative); Leukocyte Esterase-Dipstick 500 /ul (Negative); Nitrite-Dipstick Negative (Negative); Occult Blood-Urine 250 /ul (Negative); Protein-Dipstick 15 mg/dl (Negative); Urine Bilirubin Dipstick Negative (Negative); Urine Clarity Sl. Cloudy (Clear); Urine Urobilinogen Normal (Normal); Urine pH 6.5 (5.0 - 8.0)
[2019-11-08] MEDS: 0.9% Normal Saline 1,000 ML 1000 ML IV (18:12)
[2019-11-08 18:19] LABS: Absolute Lymphocyte Count 2.44 X10^3/uL (0.83-4.51); Absolute Neutrophil Count 11.8 X10^3/uL (2.0-7.7); Basophil# 0.06 X10^3/uL; Basophil% 0.4 % (0-1); Eosinophil# 0.08 X10^3/uL; Eosinophils% 0.5 % (0-5); Hematocrit 45.1 % (37-47); Hemoglobin 15.2 g/dL (12.0-15.0); Lymphocyte # 2.44 X10^3/ul (4.0); Lymphocyte % 16.1 % (19-41); Mean Corp Hgb Conc 33.7 g/dL (32-36); Mean Corpuscular Hgb 29.2 pg (27.0-32.0); Mean Corpuscular Volume 86.6 fL (81-99); Mean Platelet Vol. 9.4 fl (6.2-12.0); Monocyte# 0.69 X10^3/uL; Monocyte% 4.5 % (0-10); NRBC Flagged by Analyzer 0 % (0-5); Neutrophil # 11.81 X10^3/uL (2.7-7.7); Neutrophil % 77.9 % (47-70); Platelet Count 270 K/mm3 (150-450); RBC Distribution Width SD 38.1 fl (35.1-43.9); Red Blood Count 5.21 M/mm3 (4.2-5.4); White Blood Count 15.2 K/mm3 (4.4-11.0)
[2019-11-08 18:21] LABS: Squamous Epithelial Cells - UA 0-5 SEEN /hpf (5-10)
[2019-11-08 18:37] LABS: Red Blood Cells-Urine 0-5 SEEN /hpf (0-5); White Blood Cells 10-25 SEEN /hpf (0-5)
[2019-11-08 18:38] LABS: Bacteria RARE /hpf (None Seen)
--- NOTE | 2019-11-08 18:40 | ED.DCSUM_ITS ---
"- ER Visit Summary Date of Service: 11/08/19 Chief Complaint: Abdominal pain History of Present Illness: The patient is a 24 F who presents with abdominal pain that began today. Patient states it began suddenly. Patient describes her pain is sharp. Patient states pain is over the left lower quadrant and left pelvic area. Patient states nothing makes it better or worse. Patient admits to nausea. Patient states she has been nauseated for the past 5 days. Patient denies any vomiting. Patient denies any diarrhea, melena, or hematochezia. Patient states her last menstrual period was October 09. Patient denies any dysuria or hematuria. Patient denies any abnormal vaginal bleeding or discharge. Physical Examination: Vital signs are stable for tachycardia of 111 and a mild tachypnea of 22. Patient is afebrile. Patient is in no acute distress. Oral mucosa is pink and moist. Neck is supple. Trachea is midline. There is no JVD. Heart was regular and tachycardic. Lungs are clear and equal bilaterally. Abdomen is soft. Bowel sounds are normal. There is left lower quadrant tenderness. There is some voluntary guarding noted. Cranial nerves II through XII are intact. There are no focal motor or sensory deficits noted. Extremities are intact. There is no calf tenderness or edema. Test Results: CBC shows a leukocytosis of 15.2. Comprehensive metabolic profile is within normal limits. Urinalysis shows a leukocyte esterase of 500 with 10- 25 white blood cells. Pelvic ultrasound was obtained. There is no evidence of ovarian torsion or mass or cyst. Serum hCG was negative. CT scan of the abdomen pelvis was obtained. There is no acute intra-abdominal process. Emergency Department Course and Treatment: Patient was given IV fluids, morphine, and Zofran. Patient is feeling better on reevaluation. Patient was given a dose of Bactrim here. Patient was given a prescription for Bactrim. Patient was also given a prescription for a short course of [place]. Patient was instructed to follow-up with her primary care physician in 5 to 7 days. Patient understood and was agreeable with the plan. All questions were answered. Disposition: Discharge home Impression: 1. Urinary tract infection 2. Left lower quadrant abdominal pain This note was generated with [employer] | [employer] software. It may contain incorrect words, spelling, and punctuation that were not noted in review of the chart prior to signing ED Disposition - Plan for ED Patient: Disposition: Home or Assisted Living Diagnosis: Urinary tract infection, Left lower quadrant abdominal pain Instructions: ED CYSTITIS Female Adult, ED Abdominal Pain Unkn Cause Fem Prescriptions: Smz/Tmp Ds [Bactrim Ds] 1 tab PO BID #6 tab Prescription Printed Hydrocodone Bitart/Apap 5-325 [[place] 5MG-325MG] 1 tab PO Q6H PRN PRN 3 Days #10 tab PRN Reason: Pain Prescription Printed Referrals: Ernesto Patton MD [NON-STAFF] - 5-7 Days"
[2019-11-08 18:46] LABS: Internal QC Validated? YES +Cl - CLEAR BKGD; Pregnancy, Serum, hCG Quali. NEGATIVE Negative
[2019-11-08 18:55] LABS: Lactic Acid 1.8 mmol/L (0.4-1.9)
--- NOTE | 2019-11-08 19:04 | CT_ITS ---
STUDY: CT ABDOMEN AND PELVIS WITH CONTRAST REASON FOR EXAM: Female, 24 years old. NAUSEA X 5 DAYS, ACUTE LLQ PAIN RADIATION DOSAGE (If Supplied By Facility): CTDIvol = ( 12.12 ) mGy, DLP = ( 970.37 ) mGycm TECHNIQUE: Transaxial images were obtained from the dome of the diaphragm to the symphysis pubis with oral contrast. Oral and amp; IV Gastrografin and amp; 100mL Isovue-300 was administered. Sagittal and coronal images were reconstructed. Individualized dose optimization techniques were used for this CT. COMPARISON: None. FINDINGS: The visualized lung bases are unremarkable. The visualized portions of the heart are within normal limits. Normal liver. Normal gallbladder and extrahepatic biliary system. Normal spleen. Normal pancreas. Normal bilateral adrenal glands. Normal right kidney. Normal left kidney. Normal visualized stomach. Normal small intestine. Normal colon. The appendix is visualized and appears normal. Normal abdominal aorta. Normal inferior vena cava. Normal retroperitoneum. Normal urinary bladder. Normal visualized uterus. Normal abdominal wall. Normal osseous structures. CT/Abdomen/Pelvis WITH Contrast IMPRESSION: Normal enhanced CT of the abdomen and pelvis. Electronically Signed: Kaiser Smith MD at 21:15 EDT , Service support ,
[2019-11-08 19:45] LABS: ALB/GLOB Ratio 1.2 RATIO (0.9-2.4); AST(SGOT) 13 U/L (15-37); Alanine Aminotransfer ALT/SGPT 23 U/L (13-56); Albumin, Serum 4.6 g/dL (3.2-5.0); Alkaline Phosphatase 80 U/L (45-117); Anion Gap 9 (5-15); BUN 9 mg/dL (7-18); BUN/Creat Ratio 12.4 RATIO (10-20); Calcium,Total 9.3 mg/dL (8.5-10.1); Chloride 107 mmol/L (98-107); Creatinine, Serum 0.72 mg/dL (0.55-1.02); EST Glomerular Filtration Rate 105 mL/min (>60); Est Glom Filt Rate - Afr Amer 127 mL/min (>60); Estimated Creatinine Clearance 117.16 ml/min; Glucose 104 mg/dL (74-106); Potassium 3.6 mmol/L (3.5-5.1); Protein, Total 8.6 g/dL (6.4-8.2); Sodium Level 140 mmol/L (136-145)
[2019-11-08] MEDS: Smz/Tmp Ds Tablet 1 TABLET PO (21:52)
[2019-11-08 21:53] VITALS: PULSE 97; RESP 16
== END 2019-11-08 22:07 | disposition home or self-care (01) ==
PROVIDERS: Emergency Provider Emergency Medicine
DX: N39.0 Urinary tract infection, site not specified (principal); R10.32 Left lower quadrant pain
CPT/HCPCS: 74177; 76830; 80053; 81001; 83605; 84703; 85025; 93976; 96361; 96374; 96375; 96376; 99284; J7030; Q9967; A4216; J2405

== ENCOUNTER → 2020-06-12 14:22 | Outpatient (CLI) | payer BC, SELFPAY ==
[2020-06-15 20:06] LABS: Chlamydia By Nucleic Acid AMP Negative (Negative)
[2020-06-15 20:37] LABS: Gonococcus By Nucleic Acid AMP Negative (Negative)
[2020-06-16 17:02] LABS: HPV Reflexed? NOT INDICATED
== END ==
PROVIDERS: Visit Provider Obstetrics & Gynecology
DX: Z12.4 Encounter for screening for malignant neoplasm of cervix (principal); Z11.3 Encounter for screening for infections with a predominantly sexual mode of transmission
CPT/HCPCS: 87491; 87591; 88175; G0145

== ENCOUNTER 2020-07-11 08:07 | Emergency (ER) | payer BC, SELFPAY ==
[2020-07-11 08:08] VITALS: BP 117/68; PULSE 83; RESP 16; TEMP 36.8; O2SAT 100; BMI 28.6
--- NOTE | 2020-07-11 08:32 | US_ITS ---
STUDY: FIRST TRIMESTER OBSTETRICAL ULTRASOUND REASON FOR EXAM: Female, 25 years old Bleeding, pain LMP: 04/25/2020 TECHNIQUE: Transabdominal and Transvaginal TECHNICAL QUALITY: Adequate. PRIOR ULTRASOUND: None. FINDINGS: There is visualization of a single gestational sac in a normal intrauterine position. The mean sac diameter (MSD) measures , indicating an estimated gestational age (EGA) of weeks, days. The gestational sac shape is within normal limits. There is no demonstrated yolk sac.. The placenta is non-visualized. There is visualization of an embryo with no cardiac activity, consistent with intrauterine demise. The crown-rump length (CRL) measures 27 mm, indicating an estimated gestational age (EGA) of 9 weeks, 1 days.. The estimated gestation age (EGA) by LMP is 11 weeks, 0 days. The estimated date of delivery (ALIZA) by LMP is 01/30/2021. The estimated gestation age (EGA) by US is 9 weeks, 1 days. The estimated date of delivery (ALIZA) by US is 02/12/2021. The uterus measures 10.0 x 7.8 x 8.1. There is no demonstrated uterine fibroid. The cervix is closed. The right ovary measures 4.5 x 3.0 x 2.0 cm. There is no right ovarian cyst. There is no visualized right adnexal mass or complex lesion. The left ovary measures 2.8 x 2.0 x 2.4 cm. There is no left ovarian cyst. There is no visualized left adnexal mass or complex lesion. There is no fluid in the cul de sac. US/Init OB < 14Wks US IMPRESSION: Intrauterine demise of estimated gestational age 9 weeks 1 day as described above. N.B. : The above information has been verbally conveyed by David Schroeder MD to Brian Russell MD, on 07/11/2020 10:33:15 (ET). Electronically Signed: David Schroeder MD at 10:35 EDT Tel , Service support ,
[2020-07-11 09:08] LABS: Bacteria 0 SEEN /hpf (None Seen); Mucous, Urine 0 SEEN /hpf (<or=2+); Red Blood Cells-Urine 0 SEEN /hpf (0-5); Squamous Epithelial Cells - UA 0 SEEN /hpf (5-10); White Blood Cells 0 SEEN /hpf (0-5)
[2020-07-11 09:10] LABS: Color, Urine Straw (Yellow); Glucose, Dipstick Normal (Normal); Ketone-Dipstick Negative (Negative); Leukocyte Esterase-Dipstick Negative /ul (Negative); Nitrite-Dipstick Negative (Negative); Occult Blood-Urine 150 /ul (Negative); Protein-Dipstick Negative (Negative); Urine Bilirubin Dipstick Negative (Negative); Urine Clarity Clear (Clear); Urine Urobilinogen Normal (Normal)
--- NOTE | 2020-07-11 09:21 | ED.VIS.FEGU ---
HPI HPI - Female History of Present Illness Chief Complaint: Vag Bld, Preg Informant: Patient Narrative Narrative: Patient is a G2, P1 at 11 weeks of by ultrasound who sees Dr. Bean. She has a blood type of A-. She reports that she began spotting yesterday. She reports the bleeding is increased today. 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 She reports that she has crampy lower abdominal pain that began today as well. It is 6 out of 10 in severity currently and at worst. Nothing makes this better or worse. PFSH PFSH Home Medications [id number] fum-folic 1 tab PO DAILY 01/05/18 [History Last Taken 06/13/18 09:00 1 tab] sulfamethoxazole-trimethoprim 1 tab PO BID #6 tab 11/08/19 [Rx Last Taken Unknown] hydrocodone-acetaminophen 1 tab PO Q6H PRN 3 Days #10 tab 07/11/20 [Rx Last Taken Unknown] ondansetron 4 mg PO Q8H PRN #10 tab 07/11/20 [Rx Last Taken Unknown] Allergy/AdvReac Type Severity Reaction Status Date / Time No Known Allergies Allergy Verified 07/11/20 08:08 Social History Smoking Status: Never smoker ROS ROS ED Constitutional Constitutional ED: Denies chills, fever(s) or sweats Eyes Eyes: Denies change in vision ENT ENT ED: Denies sore throat Cardiovascular Cardiovascular: Denies chest pain Respiratory/Chest Respiratory/Chest: Denies cough, dyspnea or dyspnea on exertion Gastrointestinal Gastrointestinal: Reports abdominal pain and diarrhea; Denies melena, nausea or vomiting Genitourinary Genitourinary ED: Denies dysuria or urinary frequency Musculoskeletal Musculoskeletal: Denies myalgias Integumentary Denies rash Neurologic Neurologic: Denies headache(s), paresthesias or weakness EXAM Physical Exam Const Vital Signs: 07/11/20 08:08 Temperature 98.3 F Temperature Source Temporal Pulse Rate 83 Respiratory Rate 16 Blood Pressure 117/68 Blood Pressure Mean 84 Pulse Ox 100 Oxygen Delivery Method Room Air Positive well nourished and well developed General Appearance ED: well developed HEENT Reports normocephalic and head/scalp atraumatic Eyes PERRL Neck no lymphadenopathy, supple and no JVD General: Negative for tenderness Resp normal respiratory effort and clear to auscultation bilaterally Cardio regular rate, regular rhythm and no murmurs GI non-distended GI Narrative: Mild suprapubic tenderness to palpation. No guarding, rebound, or peritoneal signs. Auscultation: normoactive bowel sounds Palpation: soft Back/Spine Back/Spine Narrative: Nontender. Extremity General Extremety ED: Negative for edema or tenderness General Extremity: Negative for edema Neuro oriented x3, CN's II-XII intact bilaterally and no sensory deficits noted Sensorium / Orientation: alert Motor Exam: strength 5/5 throughout Psych mental status grossly normal Skin no rashes or lesions noted MDM MDM MDM Narrative Medical decision making narrative: Patient refused pain medications. She was given Zofran orally and is resting comfortably. She was given RhoGam IM. Treatment plan: The patient was discussed with Dr. Bean. He will see her in the office in 2 days and speak with her about the possibility of a D&C. She is instructed return to the emergency department if she is soaking more than 4 pads an hour for more than 4 hours. She will be given a prescription for [place] and Zofran. Disposition: To home in stable condition. Lab Data Labs: Laboratory Results - last 24 hr 07/11/20 07/11/20 08:50 08:50 Urine Color Straw Urine Clarity Clear Urine pH 8.0 Ur Specific [place] 1.010 Urine Protein Negative Urine Glucose (UA) Normal Urine Ketones Negative Urine Occult Blood 150 H Urine Nitrite Negative Urine Bilirubin Negative Urine Urobilinogen Normal Ur Leukocyte Esterase Negative Urine RBC 0 SEEN Urine WBC 0 SEEN Ur Squamous Epith Cells 0 SEEN Urine Bacteria 0 SEEN Urine Mucus 0 SEEN Blood Type A NEGATIVE Antibody Screen NEGATIVE Radiography Diagnostic Testing: Radiology Impression Obstetrics Ultrasound 07/11/20 08:32 IMPRESSION: Intrauterine demise of estimated gestational age 9 weeks 1 day as described above. N.B. : The above information has been verbally conveyed by David Schroeder MD to Brian Russell MD, on 07/11/2020 10:33:15 (ET). Electronically Signed: David Schoreder MD at 10:35 EDT Tel , Service support , ADDENDUM: 07/11/20 1042 IMPRESSION: Intrauterine demise of estimated gestational age 9 weeks 1 day as described above. N.B. : The above information has been verbally conveyed by David Schroeder MD to Brian Russell MD, on 07/11/2020 10:33:15 (ET). Electronically Signed: David Schroeder MD at 10:35 EDT Tel , Service support , Discharge Plan Triage Chief Complaint: Vag Bld, Preg ED Provider: Cal Russell Dx/Rx/DC Orders Instructions: ED MISCARRIAGE Incomplete Prescriptions: New hydrocodone-acetaminophen 5-325 mg tablet 1 tab PO Q6H PRN (Reason: pain) 3 Days Qty: 10 RF: 0 ondansetron 4 mg tablet,disintegrating 4 mg PO Q8H PRN (Reason: nausea and vomiting) Qty: 10 RF: 0 No Action [id number] fum-folic 1 EACH tablet 1 tab PO DAILY RF: 0 sulfamethoxazole-trimethoprim 1 TABLET tablet 1 tab PO BID Qty: 6 RF: 0 Primary Care Provider: Care Physician,No Primary Referrals: Vipul Bean MD [STAFF PHYSICIAN] - 2 Days Care Physician,No Primary [Primary Care Provider] -
[2020-07-11] MEDS: Ondansetron ODT 4 MG Tablet PO ×2 (09:41→11:07)
[2020-07-11] MEDS: Morphine 4 MG/ML Syringe 8 MG IM (11:06)
[2020-07-11 11:25] VITALS: BP 123/91; PULSE 84; RESP 16
== END 2020-07-11 11:25 | disposition home or self-care (01) ==
PROVIDERS: Emergency Provider Emergency Medicine
DX: O03.4 Incomplete spontaneous abortion without complication (principal); Z3A.09 9 weeks gestation of pregnancy
CPT/HCPCS: 76801; 81001; 86850; 86900; 86901; 90384; 96372; 99283; J2790

== ENCOUNTER 2020-07-12 11:08 | Day surgery (SDC) | payer BC, SELFPAY ==
[2020-07-11 08:08] VITALS: BMI 28.6
[2020-07-12] VITALS (15 sets, daily range): BP systolic 78–135; BP diastolic 49–75; PULSE 72–122; RESP 13–18; TEMP 36.7–37.4; O2SAT 95–100; BMI 29.0
--- NOTE | 2020-07-12 11:13 | ED.VIS.FEGU ---
HPI HPI - Female History of Present Illness Chief Complaint: Vag Bleeding Narrative Narrative: Patient is a G2, P1 patient with Dr. Bean'rachelle who was seen in the emergency department yesterday and was found to have intrauterine demise at 9 weeks and 1 day. She reports that her bleeding improved last night. However, she passed tissue at 730 this morning and has had a large amount of bleeding since that time. She states that she has soaked several adult diapers. Patient complains of a cramping lower abdominal pain is 7/10 at worst and she is pain-free currently. Is worsened by movement or standing up. Is relieved by sitting or laying. She states that she feels lightheaded. This increases when she stands. She has not passed out. She also complains of generalized weakness. She is had nausea without vomiting. She denies fever, but she has had chills. PFSH PFSH Home Medications [id number] fum-folic 1 tab PO DAILY 01/05/18 [History Last Taken 06/13/18 09:00 1 tab] sulfamethoxazole-trimethoprim 1 tab PO BID #6 tab 11/08/19 [Rx Last Taken Unknown] hydrocodone-acetaminophen 1 tab PO Q6H PRN 3 Days #10 tab 07/11/20 [Rx Last Taken Unknown] ondansetron 4 mg PO Q8H PRN #10 tab 07/11/20 [Rx Last Taken Unknown] Allergy/AdvReac Type Severity Reaction Status Date / Time No Known Allergies Allergy Verified 07/12/20 11:09 Social History Smoking Status: Never smoker ROS ROS ED Constitutional Constitutional ED: Denies chills, fever(s) or sweats Eyes Eyes: Denies change in vision ENT ENT ED: Denies sore throat Cardiovascular Cardiovascular: Denies chest pain Respiratory/Chest Respiratory/Chest: Denies cough, dyspnea or dyspnea on exertion Gastrointestinal Gastrointestinal: Reports abdominal pain and nausea; Denies diarrhea, melena or vomiting Genitourinary Genitourinary ED: Reports vaginal bleeding; Denies dysuria or urinary frequency Musculoskeletal Musculoskeletal: Denies myalgias Integumentary Denies rash Neurologic Neurologic: Denies headache(s), paresthesias or weakness EXAM Physical Exam Const Vital Signs: 07/12/20 11:09 07/12/20 11:56 07/12/20 12:11 Temperature 98.1 F Temperature Source Temporal Pulse Rate 113 H 77 72 Respiratory Rate 16 17 16 Blood Pressure 135/71 H 87/51 L 92/58 L Blood Pressure Mean 92 63 69 Pulse Ox 95 100 100 Oxygen Delivery Method Room Air Room Air Oxygen Flow Rate (L/min) 07/12/20 12:32 07/12/20 12:42 07/12/20 13:20 Temperature Temperature Source Pulse Rate 80 82 81 Respiratory Rate 14 16 13 Blood Pressure 85/52 L 93/63 85/62 L Blood Pressure Mean 63 73 69 Pulse Ox 100 100 100 Oxygen Delivery Method Nasal Cannula Nasal Cannula Nasal Cannula Oxygen Flow Rate (L/min) 2 2 07/12/20 14:00 07/12/20 14:18 Temperature Temperature Source Pulse Rate 122 H 89 Respiratory Rate 16 16 Blood Pressure 89/71 L 99/56 L Blood Pressure Mean 77 70 Pulse Ox 99 Oxygen Delivery Method Nasal Cannula Oxygen Flow Rate (L/min) 2 Positive well nourished and well developed General Appearance ED: well developed HEENT Reports normocephalic and head/scalp atraumatic Eyes PERRL Neck no lymphadenopathy, supple and no JVD General: Negative for tenderness Resp normal respiratory effort and clear to auscultation bilaterally Cardio regular rhythm and no murmurs Rate: tachycardic GI soft to palpation and non-distended GI Narrative: Moderate suprapubic tenderness to palpation. No guarding, rebound, or peritoneal signs. Auscultation: normoactive bowel sounds Palpation: soft Speculum Exam - Vagina: vaginal bleeding and other Large amount of blood and clots in the vaginal vault. Moderate amount of blood coming from the cervix. There is no tissue in the os. Speculum Exam - Cervix: cervical bleeding Back/Spine Back/Spine Narrative: Nontender. Extremity General Extremety ED: Negative for edema or tenderness General Extremity: Negative for edema Neuro oriented x3, CN's II-XII intact bilaterally and no sensory deficits noted Sensorium / Orientation: alert Motor Exam: strength 5/5 throughout Psych mental status grossly normal Skin no rashes or lesions noted MDM [facility] Lab Data Labs: Laboratory Results - last 24 hr 07/12/20 07/12/20 11:42 11:42 WBC 25.5 H RBC 4.50 Hgb 13.3 Hct 38.5 MCV 85.6 MCH 29.6 MCHC 34.5 RDW Std Deviation 38.1 RDW Coeff of [place] 12.2 Plt Count 336 MPV 9.7 Immature Gran % (Auto) 0.900 Neut % (Auto) 79.5 H Lymph % (Auto) 14.1 L [place] % (Auto) 4.3 Eos % (Auto) 0.8 Baso % (Auto) 0.4 Absolute Neuts (auto) 20.3 H Absolute Lymphs (auto) 3.60 Nucleated RBC % 0 Differential Comment D Sodium 137 Potassium 3.5 Chloride 106 Carbon Dioxide 22.0 Anion Gap 9 BUN 11 Creatinine 0.83 Estim Creat Clear Calc 100.76 Est GFR (MDRD) Af Amer 108 Est GFR (MDRD) Non-Af 89 BUN/Creatinine Ratio 13.3 Glucose 117 H Calcium 8.8 Radiography Diagnostic Testing: Radiology Impression Obstetrics Ultrasound 07/12/20 11:49 IMPRESSION: 1. No evidence of intrauterine . 2. Thickened heterogeneous endometrium which may be due to blood clots or retained products of . Electronically Signed: Gama Green MD at 13:27 EDT Tel , Service support , Treatment and Re-Evaluation Comments:: Emergency department course: The patient went into use the restroom shortly after arrival. She was sitting on the commode and passed a large amount of blood vaginally. She had a syncopal episode and had to be helped back into the bed. Patient had a type and screen sent. She was given 3 L of normal saline. She is resting more comfortably. Her heart rate is now in the 80s, but her systolic blood pressure remains in the 80s despite this. When she stood to use the bedside commode her heart rate went from the 80s to the 130s. Treatment plan: The patient was discussed with Dr. Bean. He has seen her in the emergency department is going to take her to the operating room for a D&C. Patient understands this and is resting comfortably. Discharge Plan Triage Chief Complaint: Vag Bleeding ED Provider: Cal Russell Dx/Rx/DC Orders Clinical Impression: Miscarriage, Acute hypotension, Syncope Primary Care Provider: Care Physician,No Primary
--- NOTE | 2020-07-12 11:35 | ED.RN ---
PT AMBULATED TO BATHROOM. PT BECAME PALE STATED SHE DIDN'T FEEL WELL IN BATHROOM. THIS NURSE BRACED, PT SYNCOPAL WHILE SITTING ON TOILET. NO FALL OR INJURY. PT CONVULSED BRIEFLY AND CAME TO REMAINED PALE AND LETHARGIC. THIS NURSE CALLED FOR HELP ASSISTANCE TO LIFT PT OFF TOILET AND ONTO COTT PLACE IN [place]. RETURNED TO ROOM. SECOND LINE INITIATED BY PIA GALLO, FLUID INITIATED. BP 85/59, SECOND LITER HUNG.
[2020-07-12] MEDS: 0.9% Normal Saline 1,000 ML 1000 ML IV (11:40)
--- NOTE | 2020-07-12 11:49 | US_ITS ---
STUDY: FIRST TRIMESTER OBSTETRICAL ULTRASOUND REASON FOR EXAM: Female, 25 years old Intrauterine demise, retained products? LMP: Unknown. TECHNIQUE: Transvaginal TECHNICAL QUALITY: Adequate. PRIOR ULTRASOUND: 07/11/2020. FINDINGS: The previously noted intrauterine gestational sac with pole are not seen at this time. The uterus measures 7 x 7.7 x 6.5 cm.. Endometrium is thickened and heterogeneous with fluid within it measuring about 3.3 cm. The cervix is closed. The right ovary measures 2.6 x 2.7 x 1.5 cm. There is no right ovarian cyst. There is no visualized right adnexal mass or complex lesion. The left ovary measures 2.2 x 1.6 x 1.7 cm. There is no left ovarian cyst. There is no visualized left adnexal mass or complex lesion. There is no fluid in the cul de sac. US/Transvaginal w/Preg US IMPRESSION: 1. No evidence of intrauterine . 2. Thickened heterogeneous endometrium which may be due to blood clots or retained products of . Electronically Signed: Gama Green MD at 13:27 EDT Tel , Service support ,
[2020-07-12 11:52] LABS: Absolute Neutrophil Count 20.3 X10^3/uL (2.0-7.7); Basophil# 0.11 X10^3/uL; Basophil% 0.4 % (0-1); Eosinophils% 0.8 % (0-5); Hematocrit 38.5 % (37-47); Hemoglobin 13.3 g/dL (12.0-15.0); Lymphocyte % 14.1 % (19-41); Mean Corp Hgb Conc 34.5 g/dL (32-36); Mean Corpuscular Hgb 29.6 pg (27.0-32.0); Mean Corpuscular Volume 85.6 fL (81-99); Mean Platelet Vol. 9.7 fl (6.2-12.0); Monocyte# 1.11 X10^3/uL; Monocyte% 4.3 % (0-10); NRBC Flagged by Analyzer 0 % (0-5); Neutrophil # 20.29 X10^3/uL (2.7-7.7); Neutrophil % 79.5 % (47-70); POSITIVE DIFFERENTIAL YES; Platelet Count 336 K/mm3 (150-450); RBC Distribution Width CV 12.2 % (11.6-14.6); RBC Distribution Width SD 38.1 fl (35.1-43.9); White Blood Count 25.5 K/mm3 (4.4-11.0)
[2020-07-12 11:59] LABS: Differential Indicated SCAN CRITERIA MET
[2020-07-12 12:09] LABS: Anion Gap 9 (5-15); BUN 11 mg/dL (7-18); BUN/Creat Ratio 13.3 RATIO (10-20); Calcium,Total 8.8 mg/dL (8.5-10.1); Chloride 106 mmol/L (98-107); Creatinine, Serum 0.83 mg/dL (0.55-1.02); EST Glomerular Filtration Rate 89 mL/min (>60); Est Glom Filt Rate - Afr Amer 108 mL/min (>60); Estimated Creatinine Clearance 100.76 ml/min; Glucose 117 mg/dL (74-106); Potassium 3.5 mmol/L (3.5-5.1); Sodium Level 137 mmol/L (136-145)
[2020-07-12 12:14] LABS: Differential Comment D
[2020-07-12] MEDS: fentaNYL 100 MCG/2 ML Ampul 50 MCG IV (12:18)
[2020-07-12] MEDS: Ondansetron 4 MG/2 ML Vial IV (12:18)
[2020-07-12] MEDS: 0.9% Normal Saline 1,000 ML 999 ML IV ×2 (12:45)
--- NOTE | 2020-07-12 15:06 | PCM.HP.BLA ---
History and Physical Date of Admission: 07/12/20 HISTORY OF PRESENT ILLNESS: On 07/12/2020, Ana Gonzalez, a 25 year old female 1 0 0 0 1, presented for: -- Inevitable Miscarriage -- Pt with inevitable noted 2 days ago after some bleeding noted and she went to the ER where a 9+ week IUP without FHTs was noted. Pt is 11 weeks gestation by earlier u/s. Started bleeding heavier this AM and has been very orthostatic both at home in ER. Given this we plan to proceed with Suction D and E. ALLERGIES: No Known Allergies MEDICATIONS HISTORY: REVIEW OF SYSTEMS: GENERAL - Denies fever, or chills SKIN - Denies skin changes EYES - Denies visual changes EARS - Denies difficulty hearing NOSE - Denies nasal congestion or bleeding MOUTH - Denies sore throat or difficulty swallowing NECK - Denies pain or swelling RESPIRATORY - Denies shortness of breath or wheezing CARDIOVASCULAR - Denies palpitations or chest pain GASTROINTESTINAL - Denies nausea, vomiting, diarrhea, constipation GENITOURINARY - Denies dysuria, frequency of urination, incontinence of urine MUSCULOSKELETAL - Denies joint or muscle pain NEUROLOGICAL - Denies localized numbness or weakness PSYCHIATRIC - Denies depression or anxiety ENDOCRINE - amenorrhea HEMATO-IMMUNOLOGIC - Denies excesive bleeding with cuts PAST HISTORY: Breast/Ovarian/Colon Cancers - Denies Infections - Chicken pox, HX. OF UTI'S and kidney infections Illnesses - constipation Accidents - no injuries of consequence History of Abnormal PAPS - YES Hospitalizations - None has seen urologist in [place].; MENSTRUAL HISTORY: LMP Known?- YesAmount/Duration - 4-5 DAYS, Regularity - Regular, Frequency - 5 wks days, LMP - 04/16/20, Age Onset Menarche - 12 PAST PREGNANCIES: Total Pregnancies - 1; Full Term Pregnancies - 1; Premature - 0; Abortions, Induced - 0; Abortions, Spontaneous - 0; Ectopics - 0; Multiple Births - 0; Living Children - 1 FAMILY HISTORY: MaternalGrandparent - Type 2 Diabetes; MaternalGrandparent - Chronic obstructive lung disease; SOCIAL HISTORY: Alcohol Use - socially not while Smoking - Never Diet - moderate, balanced diet, caffeine < 2 drinks per day and water intake tries to get 85-100 oz daily. Lifestyle - moderate stress lifestyle Exercise - minimal and Enc to walk 20 min day. 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 Illicit Drug Use - denies use of street drugs Sexual Activity - Residence - Lives w/ Place of - [place] Hours Worked - 40 hours per week Spouse-Sig Other Name - Bryon Gonzalez Spouse-Sig Other Occupation - [employer] Spouse-Sig Other Phone No - [phone] Children Name(s) - Bubba 06/14/18 raffi Control - PHYSICAL EXAM BP's 80s/40s and orthostatic CONSTITUTIONAL - NAD, well nourished, and well developed SKIN - No rash, lesions, or ulcers HEENT - Normocephalic, PERRLA, EOMI NECK - No nodes, no nuchal rigidity and thyroid normal size and texture LYMPH NODES - Palpation of lymph nodes in neck and groins within normal limits LUNGS - CTA x2 without wheezes, crackles or rales CARDIAC - Regular rate and rhythm without rubs, murmurs, or gallops ABDOMEN - Without hepatosplenomegaly, distention, masses, rebound, or guarding; normal bowel sounds; no hernias EXTREMITIES - No edema or calf tenderness NEUROLOGICAL - Cranial nerves II-XII grossly intact PSYCHIATRIC - A and O to time, place, person, mood and affect Vagina - heavy vaginal bleeding; no tissue visualized at os per ER MD ASSESSMENT: 1. Spontaneous Abort [employer] PLAN BY DIAGNOSIS: 1. Spontaneous Abort [employer] Pt continues with heavy vaginal bleeding for third day and now orthostatic. Passed some tissue last pm but u/s today shows tissue versus blood clots in uterus. Given orthostatic hypotension, will proceed with Sucandre D and E. Discussed RBAs and all questions answered. and Also discussed possibility of transfusion and questions answered.
[2020-07-12] MEDS: Lubricating Jelly 60 GM Tube 30 GM TOPICAL (15:48)
--- NOTE | 2020-07-12 16:04 | PCM.OPRPT ---
Problems Associated Problem List Diagnoses (1) Acute hypotension: (2) Syncope: (3) Miscarriage: Report of Operation Date of Procedure: 07/12/20 Pre-Operative Diagnosis: Inevitable Miscarriage, Acute Blood Loss Post-Operative Diagnosis: Inevitable Miscarriage, Acute Blood Loss Surgery/Procedure Performed:: Suction Dilation and Evacuation Description of Surgical Findings:: 10 cm uterine cavity with products of conception present with some tissue protruding from the cervical os which was opened 1 cm. Type of Anesthesia: MAC Anesthesiologist: Lisa Canales Specimen's removed: Products of conception Estimated Blood Loss (mL): Minimal Fluids Replaced: Crystalloid Description of Procedure: Surgeon: Vipul Bean MD, FACOG Indication: 25 year patient with incomplete AB at 11+ weeks gestation with a 9+ week IUP without FHTs. She presented to the emergency room with extremely heavy bleeding this morning. 2 days ago she was noted to have a 9-week fetus without heart tones. Given that the patient with orthostatic it was decided to proceed with the above surgery. Pt has been counseled regarding the risks, benefits, and alternatives of this procedure and all questions were answered. Procedure: Patient was taken to the operating room where she was given IV sedation. The patient was prepped and draped in the usual sterile fashion. The anterior cervix was grasped with a tenaculum and cervix was dilated. An 10 mm suction curette was inserted into the cervix and all contents removed. Uterus was gently curetted and remaining tissue was removed by reinserting the suction curette. The patient tolerated the procedure well and was taken to the recovery room in satisfactory condition. Sponge, instruments and needle counts were all correct. There were no apparent complications of the surgery. Grafts/Implants Used: None Complications None
--- NOTE | 2020-07-12 16:09 | PCM.DC ---
Discharge Instructions Outpatient Procedure Reason For Visit: D&C Follow Up Care Test Results: Test results from this visit will be discussed in further detail at your follow-up appointment, if applicable. Discharge Plan Admission Primary Reason for Your Visit: Spontaneous Miscarriage Attending Provider: Vipul Bean Primary Care Provider: Care Physician,No Primary Instructions Additional Instructions / Restrictions: Nothing in vagina for 1 week. Call if bleeding >1 pad/hour or if fevers or increasing pain. Follow up in the office in 2-3 weeks. Discharge Orders/Prescriptions Prescriptions: Continued [id number] fum-folic 1 EACH tablet 1 tab PO DAILY RF: 0 sulfamethoxazole-trimethoprim 1 TABLET tablet 1 tab PO BID Qty: 6 RF: 0 ondansetron 4 mg tablet,disintegrating 4 mg PO Q8H PRN (Reason: nausea and vomiting) Qty: 10 RF: 0 Discontinued hydrocodone-acetaminophen 5-325 mg tablet 1 tab PO Q6H PRN (Reason: pain) 3 Days Qty: 10 RF: 0 Referrals: Care Physician,No Primary [Primary Care Provider] - Disposition Patient Disposition: Home, self care
--- NOTE | 2020-07-12 16:30 | POC_PTH ---
PATIENT: AMISH GILLESPIE LOC: [facility] [place] U#:[id number] AGE/SX: 25/F ROOM: RE07/12/[address]: Dr. Vipul Bean MD : 1995 BED: DIS: 07/12/2020 SPEC #: [id number] RECD: 07/13/20 06:48 STATUS: TYSHAWN REQ #: [id number] BARBIE: 07/12/20 16:[address]: Vipul Bean DEPT: SURGICAL PATHOLOGY RECD BY: Aida Coffey ENTERED: 07/13/20 08:04 SP TYPE: PROD CONC OTHR DR: No Primary Care Phys Tissues: Product of conception, NOS Procedures: Surgery Specimen Level IV HEADER OPERATION: Suction dilation and curettage PRE-OP DIAGNOSIS: Spontaneous TISSUE SUBMITTED: Products of conception MICROSCOPIC DIAGNOSIS Products of conception: Immature chorionic villi and decidua (products of conception). SJ:liz 07/14/2020 MICROSCOPIC DESCRIPTION Slides are reviewed. GROSS DESCRIPTION Received in fixative is one container labeled with the patient's name and designated products of conception. The specimen consists of multiple irregular fragments of light to dark madera soft tissue that in aggregate measure 8 x 5 x 1 cm. parts are not grossly recognized. Leasing Machine Tender portions are submitted in one cassette. / AM:liz 07/13/20 TC:5 CPT: 57316
== END 2020-07-12 16:54 | disposition home or self-care (01) ==
LOC: ED 12:24 → SDC 14:34 → ACINP 14:35
PROVIDERS: Emergency Provider Emergency Medicine; Visit Provider Obstetrics & Gynecology
PROC: (CPT 59812; principal; 2020-07-12 16:30)
DX: O03.4 Incomplete spontaneous abortion without complication (principal); D62 Acute posthemorrhagic anemia
CPT/HCPCS: 01965; 59812; 76817; 80048; 85025; 87426; 88305; 99284; J7030; A4216; J2405

== ENCOUNTER → 2020-10-21 15:55 | Outpatient (CLI) | payer BC, SELFPAY ==
[2020-07-12 15:05] VITALS: BMI 29.0
[2020-10-21 16:51] LABS: Absolute Lymphocyte Count 2.29 X10^3/uL (0.83-4.51); Absolute Neutrophil Count 6.5 X10^3/uL (2.0-7.7); Basophil# 0.05 X10^3/uL; Basophil% 0.5 % (0-1); Eosinophil# 0.12 X10^3/uL; Eosinophils% 1.3 % (0-5); Hematocrit 40.2 % (37-47); Lymphocyte # 2.29 X10^3/ul (0.83-4.51); Lymphocyte % 23.9 % (19-41); Mean Corp Hgb Conc 32.3 g/dL (32-36); Mean Corpuscular Hgb 27.2 pg (27.0-32.0); Mean Corpuscular Volume 84.1 fL (81-99); Monocyte# 0.62 X10^3/uL; Monocyte% 6.5 % (0-10); NRBC Flagged by Analyzer 0 % (0-5); Neutrophil # 6.47 X10^3/uL (2.7-7.7); Neutrophil % 67.4 % (47-70); Platelet Count 249 K/mm3 (150-450); RBC Distribution Width CV 12.7 % (11.6-14.6); RBC Distribution Width SD 38.6 fl (35.1-43.9); Red Blood Count 4.78 M/mm3 (4.2-5.4); White Blood Count 9.6 K/mm3 (4.4-11.0)
[2020-10-21 16:53] LABS: Color, Urine Yellow (Yellow); Glucose, Dipstick Normal (Normal); Ketone-Dipstick 5 mg/dl (Negative); Leukocyte Esterase-Dipstick 100 /ul (Negative); Nitrite-Dipstick Negative (Negative); Occult Blood-Urine Negative /ul (Negative); Protein-Dipstick 15 mg/dl (Negative); Specific Gravity, Urine 1.025 (1.002-1.030); Urine Bilirubin Dipstick Negative (Negative); Urine Clarity Clear (Clear); Urine Urobilinogen 4 mg/dl (Normal)
[2020-10-21 16:58] LABS: Thyroid Stim Hormone (TSH) 1.19 uIU/mL (0.358-3.74)
[2020-10-21 17:29] LABS: HIV - WCH Non-Reactive (Nonreactive); Hepatitis B Surface Antigen Non-Reactive (Nonreactive); Hepatitis C Antibody Non-Reactive (Nonreactive); Rubella IgG Reactive (Nonreactive); Syphilis Antibodies Non-reactive
[2020-10-23 20:08] LABS: Chlamydia By Nucleic Acid AMP Negative (Negative)
[2020-10-23 22:15] LABS: Gonococcus By Nucleic Acid AMP Negative (Negative)
== END ==
PROVIDERS: Visit Provider Obstetrics & Gynecology
DX: Z11.3 Encounter for screening for infections with a predominantly sexual mode of transmission (principal)
CPT/HCPCS: 36415; 81002; 84443; 85025; 86703; 86762; 86780; 86803; 87086; 87088; 87340; 87491; 87591

== ENCOUNTER → 2021-01-18 | Outpatient (CLI) | payer BC, SELFPAY | END | disposition home or self-care (01) | LOC: LABSPEC 14:23 | PROVIDERS: Visit Provider Obstetrics & Gynecology | DX: R31.9 Hematuria, unspecified (principal) | CPT/HCPCS: 87086; 87088; 87186 ==

== ENCOUNTER 2021-03-17 10:05 | Outpatient (CLI) | payer BC, SELFPAY ==
[2021-03-17 11:12] LABS: Hematocrit 35.5 % (37-47); Hemoglobin 11.7 g/dL (12.0-15.0); Mean Corpuscular Hgb 28.7 pg (27.0-32.0); Mean Platelet Vol. 9.6 fl (6.2-12.0); Platelet Count 221 K/mm3 (150-450); RBC Distribution Width CV 12.5 % (11.6-14.6); RBC Distribution Width SD 39.8 fl (35.1-43.9); Red Blood Count 4.08 M/mm3 (4.2-5.4); White Blood Count 8.7 K/mm3 (4.4-11.0)
[2021-03-17 11:17] LABS: Glucose Challenge Gest 1H 50g 143 mg/dL (70-140)
== END 2021-03-17 23:59 | disposition short-term general hospital (02) ==
LOC: WOBLAB 10:06
PROVIDERS: Visit Provider Obstetrics & Gynecology
DX: Z34.83 Encounter for supervision of other normal pregnancy, third trimester (principal)
CPT/HCPCS: 36415; 82950; 85027; 86850

== ENCOUNTER 2021-03-23 08:39 | Outpatient (CLI) | payer BC, SELFPAY ==
[2021-03-23 09:56] LABS: Glucose GTT-Gestation. Fasting 87 mg/dL (<105)
[2021-03-23 10:27] LABS: Glucose GTT-Gestational 1 Hr 198 mg/dL (<190)
[2021-03-23 13:27] LABS: Glucose GTT-Gestational 3 Hr 124 L (<145)
[2021-03-23 13:27] LABS: Glucose GTT-Gestational 2 Hr 173 mg/dL (<165)
== END 2021-03-23 23:59 | disposition short-term general hospital (02) ==
LOC: WOBLAB 08:40
PROVIDERS: Visit Provider Obstetrics & Gynecology
DX: O24.912 Unspecified diabetes mellitus in pregnancy, second trimester (principal); Z3A.00 Weeks of gestation of pregnancy not specified
CPT/HCPCS: 36415; 82951; 82952

== ENCOUNTER 2021-05-07 14:55 | Outpatient (CLI) | payer BC, SELFPAY ==
[2021-05-07 18:07] LABS: Group B Strep DNA By PCR Negative (Negative); Internal Control PASS; Probe Check PASS; Specimen Processing Control PASS
== END 2021-05-07 23:59 | disposition home or self-care (01) ==
LOC: LABSPEC 14:56
PROVIDERS: Visit Provider Obstetrics & Gynecology
DX: Z36.85 Encounter for antenatal screening for Streptococcus B (principal)
CPT/HCPCS: 87081; 87653

== ENCOUNTER 2021-05-27 21:20 | Inpatient (IN) | payer BC, SELFPAY ==
[2021-05-27 19:40] VITALS: BP 108/57; PULSE 81; TEMP 36.9
[2021-05-27 19:42] VITALS: TEMP 36.9
[2021-05-27 19:43] VITALS: PULSE 96; O2SAT 97
[2021-05-27 19:44] VITALS: BMI 32.1
[2021-05-27] MEDS: Lactated Ringers 1,000 ML 50 ML IV (21:47)
[2021-05-27 22:08] LABS: Absolute Lymphocyte Count 1.58 X10^3/uL (0.83-4.51); Absolute Neutrophil Count 6.7 X10^3/uL (2.0-7.7); Basophil# 0.01 X10^3/uL; Basophil% 0.1 % (0-1); Eosinophil# 0.04 X10^3/uL; Eosinophils% 0.5 % (0-5); Hematocrit 34.4 % (37-47); Hemoglobin 11.7 g/dL (12.0-15.0); Lymphocyte # 1.58 X10^3/ul (0.83-4.51); Lymphocyte % 17.9 % (19-41); Mean Corpuscular Hgb 28.1 pg (27.0-32.0); Mean Corpuscular Volume 82.5 fL (81-99); Monocyte# 0.44 X10^3/uL; NRBC Flagged by Analyzer 0 % (0-5); Neutrophil # 6.68 X10^3/uL (2.7-7.7); Neutrophil % 75.8 % (47-70); Platelet Count 214 K/mm3 (150-450); RBC Distribution Width CV 13.1 % (11.6-14.6); RBC Distribution Width SD 39.1 fl (35.1-43.9); Red Blood Count 4.17 M/mm3 (4.2-5.4); White Blood Count 8.8 K/mm3 (4.4-11.0)
[2021-05-27 22:23] VITALS: BP 110/72; PULSE 86; TEMP 36.8
[2021-05-27 22:26] LABS: Bedside Glucose 90 mg/dL (74-106)
[2021-05-27] MEDS: 0.9% Saline Lock 10 ML Syringe IV (23:01)
[2021-05-27] MEDS: Ondansetron 4 MG/2 ML Vial IV (23:01)
[2021-05-28] VITALS (72 sets, daily range): BP systolic 91–131; BP diastolic 51–81; PULSE 61–94; RESP 16–18; TEMP 35.9–36.8; O2SAT 96–100
[2021-05-28] MEDS: Mag Hydrox/Al Hydrox/Simeth 30 ML UDC PO (02:25)
[2021-05-28 02:26] LABS: Bedside Glucose 98 mg/dL (74-106)
--- NOTE | 2021-05-28 05:29 | PCM.HP.BLA ---
History and Physical Date of Admission: 05/27/21 OG ANTEPARTUM RECORD - HISTORY AND PHYSICAL (05/28/2021) Name: AMISH GONZALEZ History of this : This is a 25 year old [id number] presents at 39 wks + 2 days gestation in early active labor. OB Physician: Vipul Bean MD 's Physician: Marietta ...................................................................... : 1995 Age: 25 Address: [address] [place] [address] Phone: H) [phone] (O) 355 Insurance Carrier: BELINDAJAVIER [employer] [facility] [id number] Emergency Contact: BRYON JOSE MIGUEL [phone] ...................................................................... Final ALIZA: 06/02/21 By Ultrasound: 8 weeks PARITY: (G-Total Pregnancies P-Fullterm,Premature,Induced AB,Spont AB, Ectopics, Multiple,Living) ALIZA CONFIRMATION: By LMP: 08/21/20 By First Ultrasound Exam: 01/30/21 Final ALIZA: 06/02/21 OB PROBLEM LIST: A-NEG Epidural planned. Will breastfeed. H/O UTI's and kidney infections Plans to decline genetic and carrier screening Pt with GDM. Try diet control first. Diabetic education. Recent loss (July 2020) ALLERGIES: No Known Allergies MEDICATIONS: cephalexin 500 mg capsule One pill by mouth four times a day Colace 100 mg capsule daily prn with DHA and Folic Acid 400 mcg-32.5 mg chewable tablet 2 gummies daily SOCIAL HISTORY: Smoking - Never Alcohol Use - denies drinking Diet - moderate, balanced diet, caffeine < 2 drinks per day and water intake tries to get 85-100 oz daily. 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 Illicit Drug Use - denies use of street drugs Sexual Activity - Residence - Lives w/ Place of - [place], [place] Hours Worked - 40 hours per week Spouse-Sig Other Name - Bryon Gonzalez Spouse-Sig Other Occupation - [employer] Spouse-Sig Other Phone No - [phone] Children Name(s) - Bubba 06/14/18 raffi PRIOR DELIVERY HISTORY DEL DATE GEST LAB WT LB WT OZ TYPE ANES LABOR TX July 31 9 0 0 0 Sab General No Jun 29 41 12 7 6 Vag Epidural No ANTEPARTUM FLOW CHART VISIT GE RTC FU F F ID U U DATE WK MD WKS HT PN HR M SS BP ED WT ID GL D EF ST __ ____ ___ __ __ ___ __ __ __ ___ __ __ __ ___ __ 14 May 38 CM 6 39 V on + 110/62 sl 206 tr - May 37 JM 1 37 V on + 124/70 0 205 - - 1 25 Apr 36 JM 1 36 V on + 126/74 0 207 - - 1 16 Apr 35 JMW 1 35 + + 122/68 0 205 ne ne 1 50 -2 01 Apr 32 JM 2 32 V + + 126/84 sl 207 tr - 18 Apr 11 JMW 3 31 + + 118/62 sl 209 - - 05 Apr 10 JMW 3 29 + + 100/58 tr 208 ne ne 15 Mar 07 JMW 3 26 + + 124/66 0 207 - tr Feb 01 JM 4 - - + 110/62 0 202 - - Dec 29 JMW 4 20 + + 104/68 0 201 - - 06 Dec 26 JMW 4 16 + ? 104/68 0 198 - - 08 Nov 22 JMW 4 + O 116/64 0 200 tr - ANTEPARTUM NOTE(S): May 24 2021: see note May 17 2021: May 07 2021: Apr 28 2021: FM well, No complaints, good BS control Apr 13 2021: doing well Mar 30 2021: doing well, excellent BS control Mar 17 2021: FM well, 1HGT/CBC/Rhogam today Feb 24 2021: Glucola/Instructions Given, Good FM Feb 01 2021: Finished ATB 01/30/2021 feels well. Jan 07 2021: Sono Today, Good FM,Feeling Well Dec 16 2020: Occ Lightheaded, Questionable Quickening Nov 18 2020: Periodic Nausea/Fatigue,, sneek peak today COMPREHENSIVE ANTEPARTUM NOTE(S): May 24 2021: Denice is 38w 5d with BPP 8/8 and growth US with an AGA fetus. She is scheduled for induction am with SUYAPA. Complains of a gush of clear fluid after she urinated. Sugars copied. LB May 24 2021: 38/5w. GDMA1 - glucose well controlled. LOF - neg nitrazine/ferning. Not ruptured. CE unchanged 1cm. Scheduled for IOL 05/27. CM May 18 2021: H taken to OB tkg May 17 2021: Amish is 37w5d here for PNV good FM no edema. Doing well would like cervix checked. Forgot sugars at home. BR May 17 2021: 37wks, BPP 8/8 vertex. GDMA1 continue diet. IOL scheduled for 05/27/21 at 7am pit and AROM with Dr. Bean. NEEDS TO SIGN INDUCTION FORMS NEXT VISIT, ALREADY SCHEDULED. JM May 07 2021: Amish is 36w2d here for PNV good FM no edema. Blood sugars copied. No concerns or complaints today. BR May 07 2021: 36 weeks, GBS collected today. BPP 8/8 vertex. GDM A1 well-controlled on diet. BPP weekly ordered until 39 weeks. Will need induction of labor at 39 weeks. JM Apr 13 2021: Amish is 32w6d here for PNV good FM slight edema. Doing well. Blood sugars are copied. BR Apr 13 2021: 32wk, GDMA1. OTBS wnl. Growth ultrasound ordered for next visit. Consider weekly BPP until delivery. At this time for 39-week delivery. JM Mar 30 2021: Denice is here today for PNV 30w6d doing well good FM. Sl edema. Blood sugars are copied. BR Mar 29 2021: Denice is here today for diabetic teaching. She brought along her glucometer and notebook as she's been tracking BS and meals several days. Using glucometer correctly. All readings are far within normal limits. Dietary notes are all very good. States she feels so much better when she's eating healthy. States she's motivated to keep tight control as she prefers not to need insulin and for her baby. Feb 22 2021: Amish is here following call to Triage. Ate greasy pizza last night. Diarrhea x 3 since then. Went to work this am. Noted decreased activity. Wt 206#. Started feeling baby move on way to office. FHT 130-140 located w ease. No fever. No emesis. Just don't feel too good. Reviewed w Dr WASSERMAN. OK'ed for disch home. Enc to rest today. Pt is agreeable. Baby moving well now. RITA. Feb 01 2021: 22 weeks, will complete 1 hour GTT and get RhoGam at 28 weeks. ALCIDES Jan 18 2021: Amish is here following call to Triage. History of dysuria, frequency, nausea since Monday. Noted hematuria today. Has some back tightness and a sore abdomen. Clean catch urine obtained and long dip: leukocytes 2+, pH 6.0, blood 1+, SG 1.005 w remainder neg. Amish is 20.5 w gest. Baby active. Reviewed w Dr Wilmer Cannon. Urine to lab for C. Keflex 500 4 x daily escripted to her pharmacy. En Dec 01 2020: Amish calling @ 13 wks 6 days with the following concerns. Yesterday had a migraine, diarrhea, nausea and cramping. No fever. No one else ill in the family. Today all Sx have gone. No spotting. No cramping. Temp this morning 98.6. Concerned about SAB. Discussed above Sx sound more like an illness. Went to [employer] on Monday, no masks. States she is not vaccinated as only a 6 wk window in between S Nov 18 2020: Amish presents here today for PNV and requests Sneek Peek to be drawn as well. Reports having periodic nausea/fatigue, but otherwise doing well. RACHELLE Oct 30 2020: NOB TELEHEALTH VISIT, 50 MINUTE DURATION. Amish is a 25 year old A1 with an ALIZA of 06/02/2021, current GA is 9 w 2 d. She had a missed AB in July of 2020 with heavy bleeding, and she had a D+C. She shares that she is nervous about having another loss, but she has some reassurance since she is still quite nauseated and experiencing fatigue and breast tenderness. She has no experienced an bl Oct 21 2020: ok Oct 21 2020: Amish presents here today with spouse for Missed Menses appointment. 25 y.o. G 3 P 1 non-smoker with one menses since D and C from SAB and LMP of 08-21-20 lasting her average of 5-6 days. UPT is positive today in our Office. Denies spotting/bleeding thus far in . Reports having daily nausea, fatigue and tender breasts. History of LGSIL in 2018 with Colposcopy for benign results, norm REVIEW OF SYSTEMS: GENERAL - Denies fever, or chills SKIN - Denies rash, new skin lesions, or change in moles EYES - Denies blurred vision, or change in visual acuity EARS - Denies ear pain, or difficulty hearing NOSE - Denies nasal congestion, discharge, or bleeding MOUTH - Denies sore throat, or difficulty swallowing NECK - Denies pain or swelling RESPIRATORY - Denies shortness of breath, cough, wheezing CARDIOVASCULAR - Denies palpitations, chest pain, orthopnea, PND, peripheral edema, syncope or claudication GASTROINTESTINAL - Denies nausea, vomiting, diarrhea, constipation, Denies abdominal pain, melena and or bright red blood GENITOURINARY - Denies dysuria, frequency of urination, urgency, or hesitancy MUSCULOSKELETAL - Denies joint or muscle pain, or back pain NEUROLOGICAL - Denies localized numbness, weakness, or tingling PSYCHIATRIC - Denies depression, anxiety, substance abuse or suicide attempts ENDOCRINE - Denies heat or cold intolerance, weight loss or gain, increasing thirst HEMATO-IMMUNOLOGIC - Denies easy bruising, bleeding, oral ulcerations or recurrent infections GENETICS SCREENING: Age 35+ years: No Thalassemia: No Neural Tube Defect: No Down Syndrome: No JASMINA-SACHS: No Sickle Cell Disease: No Hemophilia: No Musc. Dystrophy: No Cystic Fibrosis: No-declines screening [place] Chorea: No Mental Retardation: No Fragile X: No Other genetic: No Other defects: No SABs/still births: No Drugs since LMP: No INFECTION HISTORY: High risk AIDS: No High risk Hepatitis: No Exposed to TB: No Exposed to Herpes: No Rash/viral illness since LMP: No History of STD: No MENSTRUAL HISTORY: *Menses Amount/Duration: 4-5 DAYSMenses Regularity: RegularFrequency: 5 wksBCP's at Conception: NoMenarche (Age Onset): 12* PAST SUMMARY: PARITY: 1. Total Pregnancies............ 3 2. Full Term Pregnancies........ 1 3. Premature.................... 0 4. Abortions - Induced.......... 0 5. Abortions - Spontaneous...... 1 6. Ectopics..................... 0 7. Multiple Births.............. 0 8. Living Children.............. 1 PAST #1: Date of :.................. 06/14/18 Gestation Weeks:................ 41 Length of labor(hours):......... 12 Sex:............................ M Weight-lbs:............... 7 Weight-oz:................ 6 Type of Delivery:............... Vag Type of Anesthesia:............. Epidural Place of Delivery:.............. [place] Treatment of Labor?:.... No Comment: SROM, LONG 2ND STAGE PAST #2: Date of :.................. 07/12/20 Gestation Weeks:................ 9 Length of labor(hours):......... 0 Sex:............................ Weight-lbs:............... 0 Weight-oz:................ 0 Type of Delivery:............... Sab Type of Anesthesia:............. General Place of Delivery:.............. [place] Treatment of Labor?:.... No Comment: MISSED AB, D+C PHYSICAL EXAMINATION General Appearence: 25 yo female in no acute distress Vital Signs: AF, VSS Heart: RRR without rubs or gallops Lungs: CTA x 2 Breasts: deferred Abdomen: gravid Pelvis: Cervix: 4/70 Presentation: cephalic Station: -2 Fetus: Size: AGA Movement: present Heart: present LAB TEST(S) ORDERED SINCE:09/05/20 01/20/2021 URINE CULTURE 10/23/2020 URINE CULTURE 10/23/2020 CHLAMYDIA/GC ZAID APTIMA 10/21/2020 URINALYSIS, ROUTINE (DIPSTICK) 10/21/2020 THYROID STIM HORMONE (TSH) 10/21/2020 RUBELLA IGG 10/21/2020 T AND S-NO CHARGE W/PNP 10/21/2020 L509.8000 10/21/2020 HIV - [facility] 10/21/2020 HEPATITIS C ANTIBODY 10/21/2020 HEPATITIS B SURFACE ANTIGEN 10/21/2020 CBC W/DIFF, AUTOMATED 05/28/2021 BEDSIDE GLUCOSE 05/27/2021 TYPE AND SCREEN 05/27/2021 COVID 19 AG RAPID (RN COLLECT) 05/27/2021 CBC W/DIFF, AUTOMATED 05/27/2021 BEDSIDE GLUCOSE 05/11/2021 RULE OUT BETA STREP (GRP. B) 05/07/2021 GROUP B STREP DNA BY PCR 03/23/2021 GESTATIONAL GTT 3HR 100G 03/17/2021 GLUCOSE CHALLENGE GEST 1H 50G 03/17/2021 CBC-COMPLETE BLOOD CNT NO DIFF 03/17/2021 [id number] == ==== Order Observation Description Value Ref_Range A* Site == ==== BEDSIDE GLUCOSE NOTE MESA BEDSIDE GLUCOSE FINGERSTICK GLU 98 mg/dL 74-106 POCL MANAGEMENT OF PATIENT CARE PER NURSING PROTOCOL BEDSIDE GLUCOSE NOTE MESA BEDSIDE GLUCOSE FINGERSTICK GLU 90 mg/dL 74-106 POCL MANAGEMENT OF PATIENT CARE PER NURSING PROTOCOL COVID 19 AG RAP NOTE MESA Labor [facility]~[address] [place], [address]~ TYPE AND SCRE AB SCREEN GEL NEGATIVE ML CBC W/DIFF, AUT NOTE MESA CBC W/DIFF, AUT WBC 8.8 K/mm3 4.4-11.0 ML CBC W/DIFF, AUT RBC 4.17 M/mm3 4.2-5.4 L ML CBC W/DIFF, AUT HGB 11.7 g/dL 12.0-15.0 L ML CBC W/DIFF, AUT HCT 34.4 37-47 L ML CBC W/DIFF, AUT MCV 82.5 fL 81-99 ML CBC W/DIFF, AUT MCH 28.1 pg 27.0-32.0 ML CBC W/DIFF, AUT MCHC 34.0 g/dL 32-36 ML CBC W/DIFF, AUT RDW CV 13.1 11.6-14.6 ML CBC W/DIFF, AUT RDW SD 39.1 fl 35.1-43.9 ML CBC W/DIFF, AUT PLT 214 K/mm3 150-450 ML CBC W/DIFF, AUT MPV 10.0 fl 6.2-12.0 ML CBC W/DIFF, AUT NEUT% 75.8 47-70 H ML CBC W/DIFF, AUT LY% 17.9 19-41 L ML CBC W/DIFF, AUT MONO% 5.0 0-10 ML CBC W/DIFF, AUT EO% 0.5 0-5 ML CBC W/DIFF, AUT BASO% 0.1 0-1 ML CBC W/DIFF, AUT IG% 0.700 0.0-0.9 ML IG% - Immature Granulocytes (promyelocytes, myelocytes and metamyelocytes) > 1% indicates that a LEFT SHIFT is Present. CBC W/DIFF, AUT ABSOLUTE NEUT 6.7 X10 3/uL 2.0-7.7 ML CBC W/DIFF, AUT ABSOLUTE LYMPH 1.58 X10 3/uL 0.83-4.51 ML CBC W/DIFF, AUT NUCLEATED RBC 0 0-5 ML GROUP B STREP D NOTE MESA GROUP B STREP D GBS DNA ASSAY Negative Negative ML RULE OUT BETA S NOTE MESA GESTATIONAL GTT NOTE MSEA GESTATIONAL GTT 3HR GTT- GEST. MG/DL H ML FASTING 87 Col: 03/23/21 0847 GLUCOSE TOLERANCE TEST FOR Reference Interval GESTATIONAL DIABETES Fasting <105 mg/dL 1 hour <190 mg/dl 2 hour <165 mg/dl 3 hour <145 mg/dl 1 HR GLU 198 H Col: 03/23/21 0947 2 HR GLU 173 H Col: 03/23/21 1047 3 HR GLU 124 Col: 03/23/21 1147 [facility]~[address] [place], [address]~ [id number] AB SCREEN GEL NEGATIVE ML GLUCOSE CHALLEN NOTE MESA GLUCOSE CHALLEN GLU GEST 50G 1H 143 mg/dL 70-140 H ML CBC-COMPLETE BL NOTE MESA CBC-COMPLETE BL WBC 8.7 K/mm3 4.4-11.0 ML CBC-COMPLETE BL RBC 4.08 M/mm3 4.2-5.4 L ML CBC-COMPLETE BL HGB 11.7 g/dL 12.0-15.0 L ML CBC-COMPLETE BL HCT 35.5 37-47 L ML CBC-COMPLETE BL MCV 87.0 fL 81-99 ML CBC-COMPLETE BL MCH 28.7 pg 27.0-32.0 ML CBC-COMPLETE BL MCHC 33.0 g/dL 32-36 ML CBC-COMPLETE BL RDW CV 12.5 11.6-14.6 ML CBC-COMPLETE BL RDW SD 39.8 fl 35.1-43.9 ML CBC-COMPLETE BL PLT 221 K/mm3 150-450 ML CBC-COMPLETE BL MPV 9.6 fl 6.2-12.0 ML URINE CULTURE NOTE MESA URINE CULTURE NOTE MESA PN N [facility]~[address] [place], [address]~ T AND AB SCREEN GEL NEGATIVE ML HEPATITIS B SKYLER NOTE MESA HEPATITIS B SKYLER HEP B SURF AG Non-Reactive Nonreactive ML HEPATITIS C ANT NOTE MESA HEPATITIS C ANT HEPATITIS C AB Non-Reactive Nonreactive ML Non Reactive: < 0.8 Equivocal: >/= 0.8 to < 1.0 Reactive: >/= 1.0 The CDC recommends that a reactive/equivocal HCV antibody result be followed up by the HCV Nucleic Acid Amplification test (376539) HIV - [facility] NOTE MESA HIV - [facility] HIV Non-Reactive Nonreactive ML L509.8000 NOTE MESA L509.8000 SYPHILIS ABS Non-reactive ML RUBELLA IGG NOTE MESA RUBELLA IGG RUBELLA IGG Reactive Nonreactive ML Antibody Results Interpretation of Immune Status Non Reactive Presumed Non-Immune Equivocal Equivocal Reactive Presumed Immune URINALYSIS, ROU NOTE MESA URINALYSIS, ROU COLOR Yellow Yellow ML URINALYSIS, ROU URINE CLARITY Clear Clear ML URINALYSIS, ROU GLUCOSE, UR Normal mg/dl Normal ML URINALYSIS, ROU BILIRUBIN URINE Negative mg/dL Negative ML URINALYSIS, ROU KETONE UR 5 mg/dl Negative A ML URINALYSIS, ROU SP.GR. DIPSTX 1.025 1.002-1.030 ML URINALYSIS, ROU PH UR 6.0 5.0 - 8.0 ML URINALYSIS, ROU PROT DIPSTX 15 mg/dl Negative A ML URINALYSIS, ROU UROBILI 4 mg/dl Normal A ML URINALYSIS, ROU NITRITE Negative Negative ML URINALYSIS, ROU OCCULT BLOOD-UR Negative /ul Negative ML URINALYSIS, ROU LEUK ESTERASE 100 /ul Negative A ML THYROID STIM HO NOTE MESA THYROID STIM HO TSH 1.19 uIU/mL 0.358-3.74 ML CBC W/DIFF, AUT NOTE MESA CBC W/DIFF, AUT WBC 9.6 K/mm3 4.4-11.0 ML CBC W/DIFF, AUT RBC 4.78 M/mm3 4.2-5.4 ML CBC W/DIFF, AUT HGB 13.0 g/dL 12.0-15.0 ML CBC W/DIFF, AUT HCT 40.2 37-47 ML CBC W/DIFF, AUT MCV 84.1 fL 81-99 ML CBC W/DIFF, AUT MCH 27.2 pg 27.0-32.0 ML CBC W/DIFF, AUT MCHC 32.3 g/dL 32-36 ML CBC W/DIFF, AUT RDW CV 12.7 11.6-14.6 ML CBC W/DIFF, AUT RDW SD 38.6 fl 35.1-43.9 ML CBC W/DIFF, AUT PLT 249 K/mm3 150-450 ML CBC W/DIFF, AUT MPV 10.0 fl 6.2-12.0 ML CBC W/DIFF, AUT NEUT% 67.4 47-70 ML CBC W/DIFF, AUT LY% 23.9 19-41 ML CBC W/DIFF, AUT MONO% 6.5 0-10 ML CBC W/DIFF, AUT EO% 1.3 0-5 ML CBC W/DIFF, AUT BASO% 0.5 0-1 ML CBC W/DIFF, AUT IG% 0.400 0.0-0.9 ML IG% - Immature Granulocytes (promyelocytes, myelocytes and metamyelocytes) > 1% indicates that a LEFT SHIFT is Present. CBC W/DIFF, AUT ABSOLUTE NEUT 6.5 X10 3/uL 2.0-7.7 ML CBC W/DIFF, AUT ABSOLUTE LYMPH 2.29 X10 3/uL 0.83-4.51 ML CBC W/DIFF, AUT NUCLEATED RBC 0 0-5 ML CHLAMYDIA/GC NA NOTE MESA CHLAMYDIA/GC NA CHLAMY,NUC ACID Negative Negative LCI CHLAMYDIA/GC NA GC BY NUC ACID Negative Negative LCI Performed at: = - [facility] [id number] [employer] Worker: Janay Batista MD, Phone: [phone] *Negative results from patients with symptom onset beyond five days should be treated as presumptive and confirmed by a molecular assay if clinically necessary. Negative results should not be used as the sole basis for treatment or for patient management. SARS-CoV-2 Ag Resp Ql IA.rapid *Positive results do not differentiate between SARS-CoV and SARS-CoV-2. If differentation of the specific SARS virus is desired an additional sample and an additional order is required. SARS-CoV-2 Ag Resp Ql IA.rapid * This test has not been FDA cleared or approved; the test has been authorized by FDA under an Emergency Use Authorization (EAU) for use by laboratories certified under CLIA that meet the requirements to perform moderate, high, or waived complexity tests. SARS-CoV-2 Ag Resp Ql IA.rapid Normal Reference Range: Negative SARS-CoV-2 (COVID 19) Negative RAPID METHOD [employer] COVID19 Ag Card A NEGATIVE Group B Beta Streptococcus is not isolated. Presumptive E. coli [place] Count 25,000-50,000 Presumptive E. coli: REACTION Ampicillin <=2 S Ampicillin+Sulbactam <=2 S Cefazolin <=4 S Cefepime <=0.12 S Ceftriaxone <=0.25 S Ciprofloxacin <=0.25 S Ertapenem <=0.12 S Beta lactamase.extended spectrum NEG Gentamicin <=1 S Imipenem <=0.25 S Levofloxacin <=0.12 S Nitrofurantoin <=16 S Piperacillin+Tazobactam <=4 S Tobramycin <=1 S Trimethoprim+Sulfamethoxazole <=20 S Mixed Gram Positive Organisms [place] Count 1000-10,000 MIXC Mixed contaminants. Submit a new specimen if indicated. A NEGATIVE == ==== Impression /Plan: 39 wks + 2 days intrauterine in early active labor. Preparations in progress for delivery.
[2021-05-28 06:21] LABS: Bedside Glucose 88 mg/dL (74-106)
[2021-05-28] MEDS: Lactated Ringers 500 ML 999 ML IV (08:21)
--- NOTE | 2021-05-28 09:02 | PCM.PN.OB ---
Subjective Subjective Reports contractions painful 10, however, not yet ready for epidural. Objective Data Objective Data Vital Signs: Vital Signs Temp Pulse BP Pulse Ox 98.2 F 87 103/61 98 05/28/21 08:06 05/28/21 08:06 05/28/21 08:06 05/28/21 08:06 Weight: 92.986 kg Body Mass Index (BMI) 32.1 Intake & Output: Intake and Output for Last 24 Hours 05/26/21 05/27/21 05/28/21 23:59 23:59 23:59 Intake Total 120 / 120 Balance 120 / 120 Lab / Micro Data Result Diagrams: 05/27/21 21:24 Labs: Laboratory Results - last 24 hr 05/27/21 21:24: WBC 8.8, RBC 4.17 L, Hgb 11.7 L, Hct 34.4 L, MCV 82.5, MCH 28.1, MCHC 34.0, RDW Std Deviation 39.1, RDW Coeff of Dalia 13.1, Plt Count 214, MPV 10.0, Immature Gran % (Auto) 0.700, Neut % (Auto) 75.8 H, Lymph % (Auto) 17.9 L, [place] % (Auto) 5.0, Eos % (Auto) 0.5, Baso % (Auto) 0.1, Absolute Neuts (auto) 6.7, Absolute Lymphs (auto) 1.58, Nucleated RBC % 0 05/27/21 21:24: Blood Type A NEGATIVE, Antibody Screen NEGATIVE 05/27/21 22:13: POC Glucose 90 05/28/21 02:07: POC Glucose 98 05/28/21 06:10: POC Glucose 88 Micro: Microbiology 05/27/21 21:50 Nasal Secretion SARS-CoV-2 Antigen (Rapid) - Final Physical Exam Narrative GEN - NAD, AAO x 3 FHR 130, moderate variability, + accelerations, no decelerations TOCO 1-2/10 min SVE 3/40/-4, presenting hand present, head not well applied to cervix Assessment & Plan (1) 39 weeks gestation of : PLAN: Bedside US performed confirming CEPHALIC presentation with hand below head. Will start pitocin - defer amniotomy (2) Gestational diabetes: QUALIFIERS: Gestational diabetes mellitus control: diet-controlled Trimester: third trimester Qualified Code(s): O24.410 - Gestational diabetes mellitus in , diet controlled PLAN: well controlled Recent glucose 88
[2021-05-28] MEDS: Oxytocin 30 units/NS 500 ml 30 UNITS/500 ML IV.SOLN IV (09:25)
[2021-05-28 10:55] LABS: Bedside Glucose 85 mg/dL (74-106)
[2021-05-28 13:36] LABS: Bedside Glucose 79 mg/dL (74-106)
[2021-05-28] MEDS: fentaNYL-bupivacaine (epidural) 100 ML BAG EPIDURAL (14:56)
[2021-05-28] MEDS: Lactated Ringers 1,000 ML 200 ML IV (15:17)
--- NOTE | 2021-05-28 17:28 | PN.OBGYN_ITS ---
Subjective Subjective Comfortable with epidural. No complaints. Objective Data Objective Data Vital Signs: Vital Signs Temp Pulse BP Pulse Ox 97.8 F 67 105/59 L 100 05/28/21 17:21 05/28/21 17:23 05/28/21 17:23 05/28/21 17:21 Weight: 92.986 kg Body Mass Index (BMI) 32.1 Intake & Output: Intake and Output for Last 24 Hours 05/26/21 05/27/21 05/28/21 23:59 23:59 23:59 Intake Total 3005.04 / 3005.04 Output Total 600 / 600 Balance 2405.04 / 2405.04 Lab / Micro Data Result Diagrams: 05/27/21 21:24 Labs: Laboratory Results - last 24 hr 05/27/21 21:24: WBC 8.8, RBC 4.17 L, Hgb 11.7 L, Hct 34.4 L, MCV 82.5, MCH 28.1, MCHC 34.0, RDW Std Deviation 39.1, RDW Coeff of Dalia 13.1, Plt Count 214, MPV 10.0, Immature Gran % (Auto) 0.700, Neut % (Auto) 75.8 H, Lymph % (Auto) 17.9 L, [place] % (Auto) 5.0, Eos % (Auto) 0.5, Baso % (Auto) 0.1, Absolute Neuts (auto) 6.7, Absolute Lymphs (auto) 1.58, Nucleated RBC % 0 05/27/21 21:24: Blood Type A NEGATIVE, Antibody Screen NEGATIVE 05/27/21 22:13: POC Glucose 90 05/28/21 02:07: POC Glucose 98 05/28/21 06:10: POC Glucose 88 05/28/21 10:03: POC Glucose 85 05/28/21 13:28: POC Glucose 79 05/28/21 17:37: POC Glucose 58 L Micro: Microbiology 05/27/21 21:50 Nasal Secretion SARS-CoV-2 Antigen (Rapid) - Final Physical Exam Narrative GEN - NAD, AAO x 3 FHR TOCO 3/10 min SVE 4.5/75/-3, soft and midposition NST FHR Rate Baby A Baseline: 120 Variability:: Moderate Accelerations:: 15 x 15 Decelerations:: Variable NST Reactive:: Yes FHR Category:: Category II Uterine Activity:: 3-06/20 Assessment & Plan (1) 39 weeks gestation of : PLAN: Amniotomy performed, meconium stained fluid IUPC, ISE placed Continue pitocin as tolerated by mother and fetus (2) Gestational diabetes: QUALIFIERS: Gestational diabetes mellitus control: diet-controlled Trimester: third trimester Qualified Code(s): O24.410 - Gestational diabetes mellitus in , diet controlled
[2021-05-28 17:46] LABS: Bedside Glucose 58 mg/dL (74-106)
[2021-05-28] MEDS: Oxytocin 30 units/NS 500 ml 30 UNITS/500 ML IV.SOLN 334 UNITS IV (18:34)
--- NOTE | 2021-05-28 18:49 | EX.PCM.OBRPT ---
Assessment & Plan (1) 39 weeks gestation of : (2) Gestational diabetes: QUALIFIERS: Gestational diabetes mellitus control: diet-controlled Trimester: third trimester Qualified Code(s): O24.410 - Gestational diabetes mellitus in , diet controlled (3) (spontaneous vaginal delivery): Details Operative Information Date of Procedure: 05/28/21 Vaginal Delivery Maternal Presentation Maternal Presentation: Latent labor Type of Induction: Pitocin and Amniotomy Operative Information Date of Procedure: 05/28/21 Pre-Operative Diagnosis: 1. 39 2/7 weeks gestation 2. Gestational diabetes - diet controlled Post-Operative Diagnosis: 1. 39 2/7 weeks gestation 2. Gestational diabetes - diet controlled Surgery / Procedure Performed: Spontaneous Vaginal Delivery Type of Anesthesia: Epidural Anesthesiologist: Marcos Bean Drain: Thomas to straight drain Estimated Blood Loss: 150 ml Findings Description of Procedure: On arrival to room the head had delivered. Patient pushed to deliver a [vigorous] [female] infant. The was placed on the maternal abdomen and further attended by nursery personnel. The cord was doubly clamped and cut at [4] minutes of life. The placenta delivered spontaneously and appeared intact on inspection. Cord blood was obtained. Perineum intact. Sponge and needle counts were correct x2. Presentation: Vertex Amniotic Fluid Description: Lightly stained meconium Placental Delivery Description: Spontaneous Placenta Disposition: [facility] Specimen(s) Removed: placenta Cord Vessel Description: 3 Vessels Cord Entanglement: None A Gender: Female (1 minute): 8 (5 minute): 9 Delayed Cord Clamping: Yes Post Vaginal Delivery Medications Given After Delivery: IV Pitocin Episiotomy Description: None Laceration: None Complication Complications: None
[2021-05-28 19:41] LABS: Bedside Glucose 65 mg/dL (74-106)
[2021-05-28 19:41] LABS: Bedside Glucose 80 mg/dL (74-106)
[2021-05-29 04:00] VITALS: BP 124/69; PULSE 83; RESP 18; TEMP 36.4; TEMP 36.6
[2021-05-29] MEDS: Ibuprofen 600 MG Tablet PO ×2 (04:03→13:09)
[2021-05-29 06:35] LABS: Bedside Glucose 101 mg/dL (74-106)
[2021-05-29] MEDS: Acetaminophen 500 MG Tablet 1000 MG PO (06:38)
--- NOTE | 2021-05-29 07:56 | PCM.PN.OB ---
Subjective Subjective No issues overnight. Patient feels well. Denies headache, vision changes, shortness of breath, chest pain. Denies heavy lochia. Has cramping. She is . Objective Data Objective Data Vital Signs: Vital Signs Temp Pulse Resp BP Pulse Ox 97.9 F 83 18 124/69 H 100 05/29/21 04:00 05/29/21 04:00 05/29/21 04:00 05/29/21 04:00 05/28/21 22:22 Oxygen Delivery Method Room Air Weight: 92.986 kg Body Mass Index (BMI) 32.1 Intake & Output: Intake and Output for Last 24 Hours 05/27/21 05/28/21 05/29/21 23:59 23:59 23:59 Intake Total 5011.38 / 5011.38 Output Total 2049 / 2049 300 / 300 Balance 2961.38 / 2961.38 -300 / -300 Lab / Micro Data Result Diagrams: 05/27/21 21:24 Labs: Laboratory Results - last 24 hr 05/28/21 10:03: POC Glucose 85 05/28/21 13:28: POC Glucose 79 05/28/21 17:37: POC Glucose 58 L 05/28/21 18:14: POC Glucose 65 L 05/28/21 19:34: POC Glucose 80 05/28/21 22:04: Screen NEGATIVE, Baby's Blood Type O POSITIVE, Baby's ALIYA NEGATIVE 05/29/21 06:28: POC Glucose 101 Micro: Microbiology 05/27/21 21:50 Nasal Secretion SARS-CoV-2 Antigen (Rapid) - Final Physical Exam Const alert, oriented x3 and no apparent distress Resp normal respiratory effort and normal air movement Cardio regular rate, regular rhythm, S1 normal heart sound and S2 normal heart sound Narrative: lochia scant Uterus Palpation: uterus fundus firm and other OB fundus nontender Extremity no calf tenderness Extremity Narrative: trace b/l LE edema Neuro oriented x3 Assessment & Plan (1) (spontaneous vaginal delivery): PLAN: A neg, infant O positive - Rhogam given Routine care (2) Gestational diabetes: QUALIFIERS: Gestational diabetes mellitus control: diet-controlled Trimester: third trimester Qualified Code(s): O24.410 - Gestational diabetes mellitus in , diet controlled PLAN: 101 mg/dL this am No further monitoring needed
[2021-05-29 08:08] VITALS: BP 102/65; PULSE 76
[2021-05-29 08:10] VITALS: BP 102/65; PULSE 76; RESP 16; TEMP 36.2
[2021-05-29 12:50] VITALS: BP 116/65; PULSE 72; TEMP 36.2
[2021-05-29 16:15] VITALS: TEMP 36.7
[2021-05-29 16:16] VITALS: BP 114/78; PULSE 79; RESP 16; TEMP 36.7
--- NOTE | 2021-05-29 18:09 | PCM.DC ---
Discharge Instructions Diet Discharge Diet: No restrictions Activity Discharge Activity: Return to Normal Activity May resume sexual activity in: 6 weeks Lifting Restrictions: 10-20 lb Dressing / Incision Call your doctor if you observe: Fever of 101 or Higher, Using more than 1 pad per hour, Shortness of breath, Chest pain, Calf discomfort, Uncontrolled pain and - (Persistent or severe headache) Follow Up Care Please Follow Up With: Vipul Bean MD When: 3 weeks for telehealth follow up 6 weeks for visit Test Results: Test results from this visit will be discussed in further detail at your follow-up appointment, if applicable. Discharge Plan Admission Admit Date/Time: 05/27/21 21:20 Primary Reason for Your Visit: Vaginal delivery Attending Provider: Vipul Bean Primary Care Provider: Care Physician,Shonna Primary Discharge Orders/Prescriptions Prescriptions: No Action [id number] fum-folic 1 EACH tablet 1 tab PO DAILY RF: 0 Referrals / Follow Up: Care Physician,No Primary [Primary Care Provider] - Disposition Disposition (needs filled in before D/C Order can be placed): Home, Self Care
== END 2021-05-29 19:50 | disposition home or self-care (01) | DRG 807 ==
LOC: WPOUT 21:31 → WP 21:31
PROVIDERS: Admitting Provider Obstetrics & Gynecology; Visit Provider Obstetrics & Gynecology
DX: O24.420 Gestational diabetes mellitus in childbirth, diet controlled (principal); Z37.0 Single live birth; O76 Abnormality in fetal heart rate and rhythm complicating labor and delivery; Z3A.39 39 weeks gestation of pregnancy; O77.0 Labor and delivery complicated by meconium in amniotic fluid
CPT/HCPCS: 59025; 59050; 82962; 85025; 85461; 86850; 86900; 86901; 87811; 90384; 99218; J7120; A4216; G0378; J2405; J2790

== ENCOUNTER 2023-12-18 08:03 | Inpatient (IN) | payer MEDICAID, SELFPAY ==
[2023-12-18] VITALS (19 sets, daily range): BP systolic 96–129; BP diastolic 51–86; PULSE 67–92; RESP 16–17; TEMP 36.5–37.2; O2SAT 97–100; BMI 31.5
[2023-12-18] MEDS: Lactated Ringers 1,000 ML 15 ML IV (07:55)
[2023-12-18 08:15] LABS: Absolute Lymphocyte Count 1.86 X10^3/uL (0.83-4.51); Absolute Neutrophil Count 5.7 X10^3/uL (2.0-7.7); Basophil# 0.02 X10^3/uL; Basophil% 0.2 % (0-1); Eosinophils% 1.2 % (0-5); Hematocrit 35.6 % (37-47); Lymphocyte # 1.86 X10^3/ul (0.83-4.51); Lymphocyte % 22.6 % (19-41); Mean Corp Hgb Conc 33.7 g/dL (32-36); Monocyte# 0.45 X10^3/uL; Monocyte% 5.5 % (0-10); NRBC Flagged by Analyzer 0 % (0-5); Neutrophil # 5.72 X10^3/uL (2.7-7.7); Neutrophil % 69.4 % (47-70); Platelet Count 199 K/mm3 (150-450); RBC Distribution Width CV 13.5 % (11.6-14.6); RBC Distribution Width SD 41.8 fl (35.1-43.9); Red Blood Count 4.14 M/mm3 (4.2-5.4); White Blood Count 8.2 K/mm3 (4.4-11.0)
[2023-12-18 08:15] LABS: Bedside Glucose 105 mg/dL (74-106)
--- NOTE | 2023-12-18 08:45 | PCM.PN.BLA ---
Progress Note pt doing well. offers no complaints. Assessment & Plan Assessment/Plan (1) 38 weeks gestation of : PLAN: Cvx /-2, soft, posterior and vertex. Intracervical werner placed in usual sterile fashion and filled with 30 cc saline. Pitocin per protocol. Updated provider superintendent car construction. (2) GDM, class A1: (3) Encounter for planned induction of labor:
[2023-12-18] MEDS: 0.9% Saline Lock 10 ML Syringe IV ×2 (08:53→21:23)
[2023-12-18 09:46] LABS: Bedside Glucose 78 mg/dL (74-106)
[2023-12-18] MEDS: Oxytocin 15 Units/NS 250ml 15 UNITS/250 ML IV.SOLN 2 UNITS IV (09:54)
[2023-12-18 10:21] LABS: Syphilis Antibodies Non-reactive
--- NOTE | 2023-12-18 11:51 | PCM.HP.OB ---
HPI - General General Date of Admission: 12/18/23 HPI Narrative AMISH GILLESPIE, is a 28 F who presents at 38w2d by LMP. Presents for induction of labor. GDMA1 with elevated fasting blood glucose levels. Decision for induction of labor due to uncontrolled fasting levels. Maternal Data Information ALIZA Calculator Estimated Delivery Date Method Current WG Current Estimate 12/30/23 Manual 38w 2d PFSH PFS Medical History (Updated 12/18/23 @ 17:14 by Mag Dang CNM) hemorrhage Miscarriage Gestational diabetes Home Medications ?Medication ?Instructions ?Recorded ?Last Taken ?Type vits 96-ferrous fumarate 1 tab PO DAILY 01/05/18 12/17/23 History 27 mg iron-folic acid 800 mcg tablet docusate sodium 100 mg capsule 100 mg PO DAILY constipation 12/18/23 Unknown History (Colace) Allergy/AdvReac Type Severity Reaction Status Date / Time No Known Allergies Allergy Verified 12/18/23 08:28 Surgical History (Updated 12/18/23 @ 08:32 by Sharon Garza) History of gynecologic surgery Social History Smoking Status: Never smoker History Elective abortions Hx Para 2 Spontaneous abortions Hx # Term Pregnancies Ectopic pregnancies Hx # Pregnancies Multiple births # of living children NST FHR Rate Baby A Baseline: 150 Variability:: Moderate Accelerations:: 15 x 15 Decelerations:: None FHR Category:: Category I Uterine Activity:: Every 2-3 Vital Signs Vital Signs Vital Signs: 12/18/23 07:44 12/18/23 07:44 12/18/23 07:44 Temperature Temperature Source Temporal Pulse Rate 77 Respiratory Rate Blood Pressure 110/70 BP Systolic 110 BP Diastolic 70 Pulse Ox 12/18/23 07:44 12/18/23 07:44 12/18/23 09:26 Temperature 97.8 F Temperature Source Pulse Rate Respiratory Rate 17 Blood Pressure 120/78 BP Systolic 120 BP Diastolic 78 Pulse Ox 12/18/23 09:26 12/18/23 09:26 12/18/23 09:26 Temperature Temperature Source Pulse Rate 73 Respiratory Rate 17 Blood Pressure BP Systolic BP Diastolic Pulse Ox 97 12/18/23 10:35 12/18/23 10:35 12/18/23 10:35 Temperature Temperature Source Pulse Rate 75 Respiratory Rate 17 Blood Pressure 128/73 H BP Systolic 128 BP Diastolic 73 Pulse Ox 12/18/23 10:35 Temperature Temperature Source Pulse Rate Respiratory Rate Blood Pressure BP Systolic BP Diastolic Pulse Ox 100 Weight Weight: 201 lb 4 oz Body Mass Index (BMI) 31.5 Physical Exam Const alert and oriented x3 General Appearance: cooperative Orientation / Consciousness: awake, oriented to person, oriented to place and oriented to time Exam Limitations: no limitations HEENT normocephalic Head and Scalp: normal to inspection, normocephalic and atraumatic Face and Sinus: normal facial exam Eyes General Eye: normal appearance of both eyes Neck full ROM Chest Chest: symmetrical chest wall rise Resp normal respiratory effort and normal air movement Auscultation: clear to auscultation bilaterally Cardio regular rate, regular rhythm, S1 normal heart sound, S2 normal heart sound, no murmurs, no rub, no gallops and no clicks GI normal to inspection, nondistended, normoactive bowel sounds and non-tender appearance of the vagina normal Bladder / Kidney Exam: no CVA tenderness Manual OB Exam: estimated gestational size appropriate, presentation cephalic, dilated 4, effaced 60, station -1 and other AROM clear moderate amount Back/Spine normal ROM Extremity normal to inspection and full ROM Skin no rashes or lesions noted Neuro oriented x3, CN's II-XII intact bilaterally and moves all extremities Sensorium / Orientation: awake, alert and oriented to person Motor Exam: clonus absent Deep Tendon Reflexes: Rt Patellar (L4): 2+ and Lt Patellar (L4): 2+ Labs Labs Labs: Blood Type A NEGATIVE Antibody Screen NEGATIVE Hct 35.6 % (37-47) L Hgb 12.0 g/dL (12.0-15.0) Obstetrics Ultrasound Syphilis Total Ab Non-reactive Rubella IgG Antibody Reactive (Nonreactive) Hep Bs Antigen Non-Reactive (Nonreactive) Hepatitis C Antibody Non-Reactive (Nonreactive) Hepatitis C Ab (EIA) 0.1 s/co ratio (0.0-0.9) Chlamydia DNA (ZAID) Negative (Negative) N.gonorrhoeae DNA (ZAID) Negative (Negative) HIV 1&2 Antibody Non-Reactive (Nonreactive) Glucose 1 Hr 50 gm 143 mg/dL (70-140) H Gest Glucose Tolerance MG/DL Group B Strep DNA Negative (Negative) Rhogam given: Yes RPR non reactive HBsAG negative HIV nonreactive Rubella Immune A negative GC/CT negative GBS negative Assessment & Plan (1) Encounter for planned induction of labor: (2) GDM, class A1: PLAN: elevated fasting blood glucose levels, no insulin and decision for IOL by (3) Rh negative state in antepartum period: PLAN: Plan 1) Admit to labor and delivery 2) Routine labs 3) Continuous EFM 4) Pain management upon request, would like unmedicated 5) Thomas with Pitocin 6) collaborative physician and notified of patient status, above assessment, and plan.
[2023-12-18 13:53] LABS: Bedside Glucose 78 mg/dL (74-106)
[2023-12-18 16:50] LABS: Bedside Glucose 76 mg/dL (74-106)
--- NOTE | 2023-12-18 17:22 | OP.PCM_ITS ---
Assessment & Plan (1) Vaginal delivery: (2) Lactating mother: Maternal Data Information ALIZA Calculator Estimated Delivery Date Method Current WG Current Estimate 12/30/23 Manual 38w 2d Vaginal Delivery Maternal Presentation Maternal Presentation: Medically Indicated Induction Type of Induction: Pitocin and Thomas Bulb Operative Information Date of Procedure: 12/18/23 Pre-Operative Diagnosis: Induction of labor, gestational diabetes Post-Operative Diagnosis: Surgery / Procedure Performed: Spontaneous Vaginal Delivery Type of Anesthesia: None (Nitrous Oxide) Estimated Blood Loss: 300 ml Time of Delivery: 17:03 Findings Description of Procedure: Progressed to complete with urge to push. Nitrous for pain management. of viable female over intact perineum. APGARS respectively. Hands and knees head delivered with body immediately forthcoming. Placed on maternal a bdomen, strong cry. Mouth and nares suctioned for secretions. Pitocin started for active 3rd stage management. Cord doubly clamped and cut by FOB after pulsations ceased, delayed cord clamping. Placenta delivered intact via pinon, 3 vessel cord intact. Perineum inspected and revealed intact. Fundus firm and hemostasis achieved. EBL 300ml. Mom and baby stable, planning to breastfeed. Family bonding well. notified of delivery. Presentation: Vertex Amniotic Membrane Rupture Type: Spontaneous Amniotic Fluid Description: Clear Placental Delivery Description: Spontaneous Placenta Disposition: [facility] Cord Vessel Description: 3 Vessels Cord Entanglement: None Infant A Gender: Female (1 minute): 9 (5 minute): 9 Delayed Cord Clamping: Yes Post Vaginal Delivery Medications Given After Delivery: IV Pitocin Episiotomy Description: None Laceration: None Complication Complications: None
[2023-12-18] MEDS: Oxytocin 15 Units/NS 250ml 15 UNITS/250 ML IV.SOLN 83 UNITS IV (17:45)
[2023-12-18] MEDS: Ibuprofen 600 MG Tablet PO (19:11)
[2023-12-18 19:44] LABS: Bedside Glucose 100 mg/dL (74-106)
[2023-12-18] MEDS: Acetaminophen 500 MG Tablet 1000 MG PO (20:13)
[2023-12-18] MEDS: Rho(D) Immune Globulin 300 MCG (1500 Unit) Syringe IV (21:21)
[2023-12-18 21:23] LABS: Hepatitis C Antibody Non-Reactive (Nonreactive)
[2023-12-19] VITALS (11 sets, daily range): BP systolic 107–114; BP diastolic 65–68; PULSE 74–101; RESP 14–16; TEMP 36.2–36.7; O2SAT 97
[2023-12-19] MEDS: Ibuprofen 600 MG Tablet PO ×3 (02:09→20:24)
[2023-12-19] MEDS: Prenatal Vits Tablet 1 TABLET PO ×2 (02:10→20:25)
[2023-12-19 05:27] LABS: Absolute Lymphocyte Count 2.32 X10^3/uL (0.83-4.51); Absolute Neutrophil Count 8.9 X10^3/uL (2.0-7.7); Basophil# 0.03 X10^3/uL; Basophil% 0.2 % (0-1); Eosinophils% 0.8 % (0-5); Hematocrit 35.1 % (37-47); Hemoglobin 11.7 g/dL (12.0-15.0); Lymphocyte # 2.32 X10^3/ul (0.83-4.51); Mean Corp Hgb Conc 33.3 g/dL (32-36); Mean Corpuscular Hgb 29.3 pg (27.0-32.0); Mean Corpuscular Volume 87.8 fL (81-99); Mean Platelet Vol. 10.1 fl (6.2-12.0); Monocyte# 0.81 X10^3/uL; Monocyte% 6.6 % (0-10); NRBC Flagged by Analyzer 0 % (0-5); Neutrophil # 8.86 X10^3/uL (2.7-7.7); Neutrophil % 72.7 % (47-70); Platelet Count 200 K/mm3 (150-450); RBC Distribution Width CV 13.5 % (11.6-14.6); RBC Distribution Width SD 43.2 fl (35.1-43.9); White Blood Count 12.2 K/mm3 (4.4-11.0)
[2023-12-19 05:48] LABS: Bedside Glucose 114 mg/dL (74-106)
--- NOTE | 2023-12-19 08:46 | PCM.PN.OB ---
Subjective Subjective Pain well controlled, average lochia. SOme cramping w/ nursing. Ambulating and urinating w/o difficulty. Objective Data Objective Data Vital Signs: Vital Signs Temp Pulse Resp BP Pulse Ox O2 Del Method 97.6 F L 86 16 109/68 97 Room Air 12/19/23 08:35 12/19/23 08:35 12/19/23 08:35 12/19/23 08:35 12/19/23 05:10 12/19/23 05:10 Oxygen Delivery Method Room Air Weight: 91.285 kg Body Mass Index (BMI) 31.5 Intake & Output: Intake and Output for Last 24 Hours 12/17/23 12/18/23 12/19/23 23:59 23:59 23:59 Intake Total 1496.61 / 1496.61 Output Total 300 / 300 Balance 1196.61 / 1196.61 Lab / Micro Data 12/19/23 05:10 Labs: Laboratory Results - last 24 hr 12/18/23 07:55: Syphilis Total Ab Non-reactive, Blood Type A NEGATIVE, Antibody Screen NEGATIVE 12/18/23 09:19: POC Glucose 78 12/18/23 13:35: POC Glucose 78 12/18/23 16:30: POC Glucose 76 12/18/23 19:10: POC Glucose 100 12/18/23 20:00: Hepatitis C Antibody Non-Reactive, Screen NEGATIVE, Baby's Blood Type A POSITIVE, Baby's ALIYA NEGATIVE 12/19/23 05:09: POC Glucose 114 H 12/19/23 05:10: WBC 12.2 H, RBC 4.00 L, Hgb 11.7 L, Hct 35.1 L, MCV 87.8, MCH 29.3, MCHC 33.3, RDW Std Deviation 43.2, RDW Coeff of Dalia 13.5, Plt Count 200, MPV 10.1, Immature Gran % (Auto) 0.700, Neut % (Auto) 72.7 H, Lymph % (Auto) 19.0, [place] % (Auto) 6.6, Eos % (Auto) 0.8, Baso % (Auto) 0.2, Absolute Neuts (auto) 8.9 H, Absolute Lymphs (auto) 2.32, Nucleated RBC % 0 Physical Exam Const alert and no apparent distress Narrative: Fundus firm, below umbilicus. Assessment & Plan (1) (spontaneous vaginal delivery): PLAN: PPD#1 doing well routine care and doing well. likely d/c home tomorrow
[2023-12-19] MEDS: Acetaminophen 500 MG Tablet 1000 MG PO (12:48)
[2023-12-20 00:51] VITALS: PULSE 62; O2SAT 99
[2023-12-20 00:52] VITALS: BP 125/75; PULSE 68
[2023-12-20 01:00] VITALS: BP 125/75; PULSE 76; RESP 14; TEMP 36.3; O2SAT 98
[2023-12-20 07:24] VITALS: BP 117/74; PULSE 78
[2023-12-20 07:26] VITALS: BP 117/74; PULSE 78; RESP 17; TEMP 36.2
[2023-12-20] MEDS: Ibuprofen 600 MG Tablet PO (07:47)
[2023-12-20 08:39] VITALS: BP 117/74; PULSE 78; TEMP 36.2
--- NOTE | 2023-12-20 09:16 | PCM.PN.OB ---
Subjective Subjective Doing well. No complaints. Breast feeding without difficulty. Voiding and ambulating. Objective Data Objective Data Vital Signs: Vital Signs Temp Pulse Resp BP Pulse Ox O2 Del Method 97.2 F L 78 17 117/74 98 Room Air 12/20/23 08:39 12/20/23 08:39 12/20/23 07:26 12/20/23 08:39 12/20/23 01:00 12/20/23 08:39 Oxygen Delivery Method Room Air Weight: 91.285 kg Body Mass Index (BMI) 31.5 Intake & Output: Intake and Output for Last 24 Hours 12/18/23 12/19/23 12/20/23 23:59 23:59 23:59 Intake Total 1496.61 / 1496.61 Output Total 300 / 300 Balance 1196.61 / 1196.61 Lab / Micro Data 12/19/23 05:10 Physical Exam Const alert and no apparent distress Narrative: Fundus firm, below umbilicus. Assessment & Plan (1) Lactating mother: (2) Vaginal delivery:
--- NOTE | 2023-12-20 09:17 | PCM.DC.SUM ---
Providers Date of Admission: 12/18/23 Date of Discharge: 12/20/23 Primary Care Physician: Shonna Primary Care Phys Reason For Visit: VAG DELIVERY Diagnosis Discharge Diagnosis (1) Lactating mother: Status: Acute Code(s): Z39.1 - Encounter for care and examination of lactating mother (2) Vaginal delivery: Status: Acute Code(s): O80 - Encounter for full-term uncomplicated delivery Medications at Discharge Home Medications vits 96-ferrous fumarate 27 mg iron-folic acid 800 mcg tablet 1 tab PO DAILY 01/05/18 docusate sodium 100 mg capsule (Colace) 100 mg PO DAILY constipation 12/18/23 Hospital Course Operations None Procedures None Summary of Care Provided Minutes Spent on Discharge: 22 Hospital Course: without complication. Breast feeding well. Physical Exam Const alert and no apparent distress Narrative: Fundus firm, below umbilicus. Weight / BMI Weight Weight: 91.285 kg Body Mass Index (BMI) 31.5 ABG / Lab / Microbiology Data 12/19/23 05:10 D/C Instructions May resume sexual activity in: 6 weeks Please Follow Up With: Cheryl Melgar MD When: Follow up with our office in 1-2 and 6 weeks or as needed. [phone] Meaningful Use Info Meaningful Use Meaningful Use Diagnoses (Choose all that apply): None applicable Ischemic Stroke Statin Dosing Therapy Reference: STATIN DOSE THERAPY REFERENCE: * Patients > 75 years receive moderate or high dose statin therapy. * Patients 75 years or YOUNGER should receive HIGH intensity statin dose unless contraindicated. You will be required to document reason for non-treatment if statin daily dose does not meet guidelines. HIGH DOSE STATIN THERAPY DAILY Atorvastatin > than or = to 40 mg Rosuvastatin > than or = to 20 mg Amlodipine + Atorvastatin > than or = to 2.5/40 mg Ezetimibe + Simvastatin 10/80 mg Simvastatin 80mg Discharge Plan Admission Admit Date/Time: 12/18/23 08:03 Primary Reason for Your Visit: labor Attending Provider: Mag Dang Primary Care Provider: Care Physician,Shonna Primary Discharge Orders/Prescriptions Prescriptions: Continued [id number] fum-folic 1 EACH tablet 1 tab PO DAILY docusate sodium [Colace] 100 mg capsule 100 mg PO DAILY Referrals / Follow Up: Care Physician,Shonna Primary [Primary Care Provider] - Disposition Disposition (needs filled in before D/C Order can be placed): Home, Self Care
== END 2023-12-20 10:00 | disposition home or self-care (01) | DRG 560 ==
PROVIDERS: Admitting Provider Advanced Practice Midwife; Referring Provider Advanced Practice Midwife; Visit Provider Advanced Practice Midwife
DX: O24.420 Gestational diabetes mellitus in childbirth, diet controlled (principal); Z37.0 Single live birth; O26.23 Pregnancy care for patient with recurrent pregnancy loss, third trimester; Z3A.38 38 weeks gestation of pregnancy; Z67.91 Unspecified blood type, Rh negative
CPT/HCPCS: 59025; 59050; 82962; 85025; 85461; 86780; 86803; 86850; 86900; 86901; 90384; 99221; J7120; A4216; G0378; J2790; J2791